=== PATIENT | male | born 1940 | race Hispanic/Latino ===

== ENCOUNTER 2016-08-14 15:28 | Emergency (ER) | payer OTHER, MEDICARE ==
[2016-08-14 15:41] VITALS: BMI 26.5
[2016-08-14 15:49] VITALS: BP 166/94; PULSE 71; RESP 18; TEMP 98; O2SAT 100
--- NOTE | 2016-08-14 15:57 | ED PDOC ---
Arrival/HPI - General Chief Complaint: Trauma Time Seen by Provider: 08/14/16 15:32 Historian: Patient, Family (Daughter) - History of Present Illness Time/Duration: Other (18 months) Symptom Onset: Sudden Symptom Course: Worsening Quality: Aching Severity Level: Moderate Associated Symptoms (Text): 08/14/16 15:54 Patient reports that approximately a year and a half prior to arrival he slipped and fell on the ice while at work injuring his neck. He's been seen by his PMD and workers compensation physician multiple times for these complaints. He reports that over the last month it has become much worse. It radiates into bilateral upper extremities with numbness and weakness of bilateral upper extremities. He had an MRI of his cervical spine on 11/05/2015 without significant findings. He reports he had a repeat MRI last week which now shows 3 herniated disks. He has an appointment with pain management in 4 days but states he cannot take the pain any longer. He has been taking Aleve with no improvement. Past Medical History - Infectious Disease Hx of Infectious Diseases: None - Past Medical History Past Medical History: No Previous - Cardiac Hx Cardiac Disorders: No - Pulmonary Hx Respiratory Disorders: No - Neurological Hx Neurological Disorder: No - HEENT Hx HEENT Disorder: No - Renal Hx Renal Disorder: Yes Hx Kidney Stones: Yes - Endocrine/Metabolic Hx Endocrine Disorders: No - Hematological/Oncological Hx Blood Disorders: No - Integumentary Hx Dermatological Disorder: No - Musculoskeletal/Rheumatological Hx Musculoskeletal Disorders: Yes Other/Comment: hernia - Gastrointestinal Hx Gastrointestinal Disorders: No - Genitourinary/Gynecological Hx Genitourinary Disorders: No - Psychiatric Hx Depression: No Hx Emotional Abuse: No Hx Physical Abuse: No Hx Substance Use: No Other/Comment: "KNEE PROBLEMS" - Past Surgical History Past Surgical History: Non-Contributing - Surgical History Other/Comment: hernia and kidney stone - Anesthesia Hx Anesthesia: No Hx Anesthesia Reactions: No Hx Malignant Hyperthermia: No - Suicidal Assessment Feels Threatened In Home Enviroment: No Family/Social History - Physician Review Nursing Documentation Reviewed: Yes Family/Social History: Unknown Family HX Smoking Status: Never Smoked Hx Alcohol Use: Yes (SOCIALLY) Frequency of alcohol use: Socially Hx Substance Use: No Hx Substance Use Treatment: No Allergies/Home Meds Allergies/Adverse Reactions: Allergies No Known Allergies Allergy (Verified 01/15/12 14:01) Review of Systems - Physician Review All systems were reviewed & negative as marked: Yes - Review of Systems Constitutional: absent: Fatigue, Fevers Respiratory: Normal Cardiovascular: Normal Gastrointestinal: Normal Musculoskeletal: Neck Pain. absent: Back Pain Neurological: absent: Headache, Dizziness, Focal Weakness, Gait Changes Physical Exam Vital Signs Temp Pulse Resp BP Pulse Ox 08/14/16 15:40 98 F 71 18 166/94 H 100 Temperature: Afebrile Blood Pressure: Hypertensive Pulse: Regular Respiratory Rate: Normal Appearance: Positive for: Well-Appearing, Non-Toxic, Uncomfortable Pain Distress: Moderate Mental Status: Positive for: Alert and Oriented X 3 - Systems Exam Head: Present: Atraumatic, Normocephalic Pupils: Present: PERRL Extroacular Muscles: Present: EOMI Conjunctiva: Present: Normal Neck: Present: Normal Range of Motion, Paraspinal Tenderness (Bilateral trapezius tenderness and spasm). No: MIDLINE TENDERNESS Respiratory/Chest: Present: Clear to Auscultation, Good Air Exchange. No: Respiratory Distress, Accessory Muscle Use Back: Present: Normal Inspection. No: CVA Tenderness, Midline Tenderness, Paraspinal Tenderness Upper Extremity: Present: Normal Inspection. No: Cyanosis, Edema Neurological: Present: GCS=15, CN II-XII Intact, Speech Normal, Motor Func Grossly Intact, Normal Cerebellar Funct Skin: Present: Warm, Dry, Normal Color. No: Rashes Medical Decision Making - Medication Orders Current Medication Orders: Cyclobenzaprine HCl (Flexeril) 10 mg PO ONCE KALEB Ketorolac Tromethamine (Toradol) 30 mg IM ONCE ONE Stop: 08/14/16 15:59 Disposition/Present on Arrival - Present on Arrival Any Indicators Present on Arrival: No History of DVT/PE: No History of Uncontrolled Diabetes: No Urinary Catheter: No History of Decub. Ulcer: No History Surgical Site Infection Following: None - Disposition Have Diagnosis and Disposition been Completed?: Yes Diagnosis: Neck pain, Cervical radiculopathy Disposition: HOME/ ROUTINE Disposition Time: 16:05 Patient Plan: Discharge Condition: GOOD Discharge Instructions (ExitCare): Cervical Sprain (ED), Cervical Radiculopathy (ED) Additional Instructions: Rest and moist heat. Follow-up with PMD. Follow up in ER as needed. Keep pain management appointment already scheduled for next week. Prescriptions: oxyCODONE/Acetaminophen [Percocet 5/325 mg Tab] 1 ea PO Q6 #15 tab
== END 2016-08-14 16:49 | disposition home or self-care (01) ==
LOC: ED 15:28
DX: M54.12 Radiculopathy, cervical region (principal); M54.2 Cervicalgia
CPT/HCPCS: 96372; 99284; J1885

== ENCOUNTER 2016-08-15 07:41 | Observation (INO) | payer OTHER, MEDICARE ==
[2016-08-15 07:42] VITALS: BMI 26.5
[2016-08-15] MEDS ORDERED: Morphine 2 mg/ml ISec IVP STA ×2 (08:18→08:44)
--- NOTE | 2016-08-15 08:18 | ED PDOC ---
Arrival/HPI - General Chief Complaint: Back Pain Time Seen by Provider: 08/15/16 07:42 Historian: Patient - History of Present Illness Narrative History of Present Illness (Text): 08/15/16 08:19 75 year old male with a past medical history that includes kidney stones presents to the emergency department with neck pain that initially began over one year ago but worsened in the past week. Patient reports he had a fall about 1.5 years ago which resulted in neck pain. Patient reports some numbness in the fingers but states he has had this for months. He states his neck pain started to worsen "a few weeks ago". He denies new trauma or injury since this recent episode's onset. Patient presents MRI report from 08/05/16 which shows broad- based central posterior disc herniation at C3-C4, C4-C5, and C5-C6. Patient reports that he had physical therapy six days after this MRI was done, after which the pain worsened. Patient states he was seen here in the ED yesterday for this pain and was given a prescription for Percocet to help with the pain until his appointment with pain management later this week, but states the Percocet is not helping. Denies fever/chills, shortness of breath, chest pain, or other symptoms. Denies weakness to legs or new weakness or numbness to any extremity. Denies incontinence of urine or stool. PMD: Dr. Esquivel 08/15/16 09:40 Time/Duration: > week Symptom Onset: Gradual Symptom Course: Unchanged Modifying Factors (Text): None Past Medical History - Provider Review Nursing Documentation Reviewed: Yes - Infectious Disease Hx of Infectious Diseases: None - Past Medical History Past Medical History: No Previous - Cardiac Hx Cardiac Disorders: No - Pulmonary Hx Respiratory Disorders: No - Neurological Hx Neurological Disorder: No - HEENT Hx HEENT Disorder: No - Renal Hx Renal Disorder: Yes Hx Kidney Stones: Yes - Endocrine/Metabolic Hx Endocrine Disorders: No - Hematological/Oncological Hx Blood Disorders: No - Integumentary Hx Dermatological Disorder: No - Musculoskeletal/Rheumatological Hx Musculoskeletal Disorders: Yes Hx Back Pain: Yes - Gastrointestinal Hx Gastrointestinal Disorders: No - Genitourinary/Gynecological Hx Genitourinary Disorders: No - Psychiatric Hx Psychophysiologic Disorder: No Hx Depression: No Hx Emotional Abuse: No Hx Physical Abuse: No Hx Substance Use: No - Past Surgical History Past Surgical History: Non-Contributing - Surgical History Other/Comment: hernia and kidney stone - Anesthesia Hx Anesthesia: No Hx Anesthesia Reactions: No Hx Malignant Hyperthermia: No - Suicidal Assessment Feels Threatened In Home Enviroment: No Family/Social History - Physician Review Nursing Documentation Reviewed: Yes Family/Social History: Unknown Family HX Smoking Status: Never Smoked Hx Alcohol Use: No Hx Substance Use: No Hx Substance Use Treatment: No Allergies/Home Meds Allergies/Adverse Reactions: Allergies No Known Allergies Allergy (Verified 08/15/16 08:00) Home Medications: Home Meds Medication Instructions Recorded Confirmed oxyCODONE/Acetaminophen [Percocet 1 ea PO Q6 PRN 08/15/16 08/15/16 5/325 mg Tab] Review of Systems - Review of Systems Constitutional: absent: Fevers Eyes: absent: Vision Changes ENT: absent: Hearing Changes Respiratory: absent: SOB Cardiovascular: absent: Chest Pain Gastrointestinal: absent: Abdominal Pain Genitourinary Male: absent: Dysuria Musculoskeletal: Back Pain, Neck Pain Skin: absent: Rash Neurological: absent: Headache Endocrine: absent: Diaphoresis Psychiatric: absent: Depression Physical Exam - Physical Exam Narrative Physical Exam (Text): Head: Atraumatic. Normocephalic. Eyes: PERRL. EOMI. Conjunctivae are not pale. ENT: Mucous membranes are moist and intact. Oropharynx is clear and symmetric. Neck: No erythema or edema. Pain with rotation and flexion and extension. Palpable left sided paraspinal tenderness. Trachea midline. No neck edema or erythema or crepitus. Cardiovascular: Regular rate. Regular rhythm. No murmurs, rubs, or gallops. Distal pulses are 2+ and symmetric. Pulmonary/Chest: No evidence of respiratory distress. Clear to auscultation bilaterally. No wheezing, rales or rhonchi. Abdominal: Soft and non-distended. There is no tenderness. No rebound, guarding, or rigidity. No organomegaly. Good bowel sounds. Back: No CVA tenderness. Extremities: No edema. No cyanosis. No clubbing. Pain with lifting left arm over his head, also right arm but less pain. Skin: Skin is warm and dry. No petechiae. No purpura. Neurological: Alert, awake, and oriented. Patient reports numbness to left fourth digit "for months", he has weaker grasp to left hand when compared to right, able to lift both arms over head but with severe pain on left. Reflexes intact. Strength with flexion and extension against resistance at elbow appears grossly intact. No wrist drop. No weakness noted to lower extremities. No incontinence of urine or stool. Psychiatric: Good eye contact. Severe pain noted. No suicidal ideation expressed. Vital Signs Reviewed: Yes Vital Signs Temp Pulse Resp BP Pulse Ox 08/15/16 08:00 98.2 F 80 16 151/88 H 98 Temperature: Afebrile Blood Pressure: Normal Pulse: Regular Respiratory Rate: Normal Appearance: Positive for: Uncomfortable Pain Distress: Severe Mental Status: Positive for: Alert and Oriented X 3 Medical Decision Making ED Course and Treatment: Differential Diagnosis include but are not limited to: cervical disc disease, cervical radiculopathy, intractable neck pain Plan: Will give Morphine and reassess. Prior Visits: Notes and results from previous visits were reviewed. Patient last seen in ED yesterday 08/14/16 for same complaint of neck/back pain and discharged home with Percocet. Progress Notes: Patient's previous visit from yesterday reviewed. He reports to me that pain is worse since yesterday, medications have not helped him. He provides outpatient MRI from 07/26/16 that was ordered by Dr. Hall. He has been receiving physical therapy since then and states pain has been worse. He has not seen a neurologist or a neursurgeon. On exam, he states that he has had numbness to left arm and hand for "months" and denies new or acute numbness or weakenss. He has severe pain with movements of his upper extremities. Left hand grasp appears mildly weaker than right, he states this is not acutely worse but has been present for "months". He does state pain has worsened. Due to intractable pain, have recommended admission with neurology and neurosurgery consultation. IV Decadron ordered and discussed with patient and family. Will admit to PMD Dr. Lady Esquivel for failure of outpatient treatment and intractable pain. Treatment plan reviewed with patient and family. Case reviewed with Dr. Lane, neurosurgery. Patient will be admitted for observation, pain persistent despite multiple doses of iv morphine, currently "7/10". 08/15/16 09:44 - Lab Interpretations Lab Results: 08/15/16 08:39 08/15/16 08:39 Lab Results 08/15/16 08:39: WBC 10.2 D, RBC 5.19, Hgb 14.8, Hct 42.9, MCV 82.7, MCH 28.5, MCHC 34.5, RDW 12.9, Plt Count 231, MPV 10.0, Gran % 75.4 H, Lymph % (Auto) 16.6 L, [place] % (Auto) 6.7 H, Eos % (Auto) 0.9 L, Baso % (Auto) 0.4, Gran # 7.72 H, Lymph # 1.7, [place] # 0.7 H, Eos # 0.1, Baso # 0.04, Sodium 135, Potassium 4.4 , Chloride 100, Carbon Dioxide 28, Anion Gap 11, BUN 24 H, Creatinine 0.9, Est GFR ( Amer) > 60, Est GFR (Non-Af Amer) > 60, Random Glucose 134 H, Calcium 9.5, Total Bilirubin 0.7, AST 36, ALT 53, Alkaline Phosphatase 99, Total Protein 7.2, Albumin 3.8, Globulin 3.4, Albumin/Globulin Ratio 1.1 - EKG Interpretation EKG Interpretation (Text): 08/15/16 09:44 EKG at 0931 normal sinus rhythm, rate of 75, no acute st elevations Interpreted by ED Physician: Yes Type: 12 lead EKG - Medication Orders Current Medication Orders: Discontinued Medications Dexamethasone (Decadron Inj) Confirm Administered Dose 8 mg .ROUTE .STK-MED ONE Stop: 08/15/16 08:37 Last Admin: 08/15/16 08:45 Dose: Dexamethasone 8 mg/ Sodium (Chloride) 52 mls @ 150 mls/hr IV STAT STA Stop: 08/15/16 08:40 Last Admin: 08/15/16 08:57 Dose: 150 MLS/HR eMAR Start Stop Document 08/15/16 08:57 GMI (Rec: 08/15/16 08:57 GMI [id number]) Intravenous Solution Start Date 08/15/16 Start Time 08:57 Ketorolac Tromethamine (Toradol) 30 mg IVP ONCE ONE Stop: 08/15/16 09:12 Last Admin: 08/15/16 09:36 Dose: 30 MG IVP Administration Document 08/15/16 09:36 GMI (Rec: 08/15/16 09:36 GMI [id number]) Charges for Administration # of IVP Administrations 1 Morphine Sulfate (Morphine) 2 mg IVP STAT STA Stop: 08/15/16 08:19 Last Admin: 08/15/16 08:26 Dose: 2 MG MAR Pain Assessment Document 08/15/16 08:26 GMI (Rec: 08/15/16 08:31 GMI [id number]) Pain Reassessment Is this a pain reassessment? Yes Sleep Is patient sleeping during reassessment? No Pain Scale Used Pain Scale Used Numeric Location Upper or Lower Upper Pain Location Body Site Neck Description Description Sharp Intensity of Pain at present 10 Pain Behavior Moaning Irritability Facial Grimacing IVP Administration Document 08/15/16 08:26 GMI (Rec: 08/15/16 08:31 GMI [id number]) Charges for Administration # of IVP Administrations 1 Morphine Sulfate (Morphine) 2 mg IVP STAT STA Stop: 08/15/16 08:45 Last Admin: 08/15/16 08:56 Dose: 2 MG MAR Pain Assessment Document 08/15/16 08:56 GMI (Rec: 08/15/16 08:57 GMI [id number]) Pain Reassessment Is this a pain reassessment? Yes Sleep Is patient sleeping during reassessment? No Presence of Pain Presence of Pain Yes Pain Scale Used Pain Scale Used Numeric Location Upper or Lower Upper Pain Location Body Site Shoulder Description Description Constant Intensity of Pain at present 10 Pain Behavior Irritability Facial Grimacing Alleviating Factors Position Change IVP Administration Document 08/15/16 08:56 GMI (Rec: 08/15/16 08:57 GMI [id number]) Charges for Administration # of IVP Administrations 1 - Scribe Statement The provider has reviewed the documentation as recorded by the Rodrigue Oseguera Provider Scribe Attestation: All medical record entries made by the Rodrigue were at my direction and personally dictated by me. I have reviewed the chart and agree that the record accurately reflects my personal performance of the history, physical exam, medical decision making, and the department course for this patient. I have also personally directed, reviewed, and agree with the discharge instructions and disposition. Disposition/Present on Arrival - Present on Arrival Any Indicators Present on Arrival: No History of DVT/PE: No History of Uncontrolled Diabetes: No Urinary Catheter: No History of Decub. Ulcer: No History Surgical Site Infection Following: None - Disposition Have Diagnosis and Disposition been Completed?: Yes Diagnosis: Intractable pain, Cervical disc herniation Disposition: HOSPITALIZED Disposition Time: 09:00 Patient Plan: Admission Patient Problems: Current Active Problems Problem Status Diagnosed Cervical disc herniation Acute Intractable pain Acute Condition: FAIR
[2016-08-15] MEDS ORDERED: Dexamethasone 4 mg/1 ml ONE (08:36)
[2016-08-15 08:39] LABS: ADD MANUAL DIFF? NO
[2016-08-15 08:56] LABS: ALB/GLOB RATIO 1.1 (1.1-1.8); ALKALINE PHOSPHATASE 99 U/L (38-133); ALT/SGPT 53 U/L (7-56); AST/SGOT 36 U/L (15-59); BILIRUBIN,TOTAL 0.7 mg/dL (0.2-1.3); BLOOD UREA NITROGEN 24 mg/dL (7-21); CALCIUM 9.5 mg/dL (8.4-10.5); CARBON DIOXIDE 28 mmol/L (21-33); CHLORIDE 100 mmol/L (98-107); GFR AFRICAN-AMERICAN > 60; GLUCOSE,RANDOM 134 mg/dL (70-110); POTASSIUM 4.4 mmol/L (3.6-5.0); SODIUM 135 mmol/L (132-148); TOTAL PROTEIN 7.2 g/dL (5.8-8.3)
[2016-08-15 09:08] LABS: BASO # 0.04 K/mm3 (0.0-2.0); BASO % 0.4 % (0.0-3.0); EOS # 0.1 (0.0-0.7); EOS % 0.9 % (1.5-5.0); GRAN # 7.72 (1.4-6.5); GRAN % 75.4 % (50.0-68.0); HEMATOCRIT 42.9 % (42.0-52.0); LYMPH # 1.7 (1.2-3.4); LYMPH % 16.6 % (22.0-35.0); MEAN CELL VOLUME 82.7 fL (80.0-105.0); MEAN CORPUSCULAR HEMOGLOBIN 28.5 pg (25.0-35.0); MEAN CORPUSCULAR HGB CONC 34.5 g/dl (31.0-37.0); MONO # 0.7 (0.1-0.6); MONO % 6.7 % (1.0-6.0); PLATELET COUNT 231 10^3/uL (120.0-450.0); RED CELL DISTRIBUTION WIDTH 12.9 % (11.5-14.5); WHITE BLOOD COUNT 10.2 10^3/ul (4.5-11.0)
[2016-08-15 12:20] VITALS: RESP 18
[2016-08-15] MEDS: Pantoprazole 40 mg EC Tab PO SCH (13:22)
--- NOTE | 2016-08-15 13:49 | CON ---
DATE: 08/15/2016 CHIEF COMPLAINT: Neck pain. HISTORY OF PRESENTING ILLNESS: A 75-year-old man with past of kidney stone, presented to the [facility] for neck pain that initially began over 1 year ago, but worsened over the past week. Apparently, 1 -1/2 years ago, he had slipped on ice and had a fall which resulted in neck pain. He reports some nu mbness in the fingers, but states that he had this for prior months with his neck pain. Now, he stat es that the neck pain is radiating down both arms, left worse than right, with tingling and numbness down the arms and with reduced hand group social worker, strength in the left hand compared to the right. He had an MRI on 08/05/2016, showed a broad based central posterior disk herniation at C3-C4, C4-C5 and C5-C6. I have not seen the report myself, but according to what the ER record shows. An MRI of the cervica l spine has been ordered. He said he did physical therapy for 6 days after his MRI, but he said it w orsened the pain. I explained to him that physical therapy is the correct mode of treatment and that his pain will increase during the first 2 weeks of physical therapy, but the pain will eventually ta per off. He was taking Percocet at home and said that it was not helping. Currently, he was given 1 dose of Decadron and morphine in the ER, which has subsided the pain. No bowel or bladder incontine nce. He does have mild left hand group social worker weakness. PAST MEDICAL HISTORY: History of kidney stones, history of fall on ice at a job which resulted in ne ck pain. REVIEW OF SYSTEMS: A 14-point is negative except for the HPI. FAMILY HISTORY: Noncontributory. SOCIAL HISTORY: No illicit drug use, smoking or ETOH abuse. MEDICATIONS: Reviewed via nurse's reconciliation sheet. ALLERGIES: No known drug allergies. PHYSICAL EXAMINATION: VITAL SIGNS: Temperature 98, pulse rate 78, blood pressure 126/81, respiratory rate 18, oxygen satur ation 99% via room air. GENERAL: The patient is sitting up in bed, in no acute distress. HEENT: Atraumatic, normocephalic. PERRLA. Extraocular muscles intact. NECK: Supple, no JVD, no adenopathy noted. LUNGS: Clear to auscultation. No adventitious sounds. HEART: S1, S2, normal rate and rhythm. No murmurs, rubs, or gallops. ABDOMEN: Soft, nontender, nondistended. Bowel sounds are present. EXTREMITIES: No clubbing, no cyanosis. Peripheral pulses 2+ felt bilaterally. NEUROLOGIC: The patient is alert, oriented to person, place, month and year. Speech is fluent, with out any errors. Cranial nerves II-XII are intact. MOTOR: Moves all extremities equally, but has a mild reduced hand group social worker on the left when compared to the right. No wrist drop. Toes are downgoing bilaterally. SENSORY: Light touch, pinprick, proprioception, vibration intact. DEEP TENDON REFLEXES: 2+ throughout. COORDINATION: [id number] intact. GAIT: Normal. LABORATORIES: Sodium is 135, potassium 4.4, chloride of 100, carbon dioxide 28, BUN of 24, creatinin e 0.9, random glucose 134. ASSESSMENT AND PLAN: A 75-year-old man with history of kidney stones, had a recent fall about a year and a half ago on ice at his job, which resulted in neck pain, which has progressed over the past fe w weeks where the neck pain is sharp in nature and is radiating down both arms, left worse than right , with reduced left hand group social worker, which is new, associated with paresthesias. His MRI of the C-spine ou [facility] on 08/05/2016 showed broad-based central posterior disk herniation C3-C4, C4-C5, C5-C6. A new M RI of the cervical spine has been ordered to see if there is any worsening. His symptoms are likely secondary to cervical radiculopathy and will recommend: 1. Physical therapy, TENS unit, myofascial massage, cervical muscle exercises and neck rehab. 2. Will give gabapentin 400 mg p.o. b.i.d. for neuropathic pain. 3. The patient is receiving Solu-Medrol 20 mg IV push q. 12 for pain as well. 4. Get an MRI of the cervical spine and neurosurgical evaluation. Once again, thank you for this consult. Abiel Daniels MD cc: [id number] TT: 08/15/2016 13:49:04 Confirmation # [id number] Dictation # [id number]
[2016-08-15] MEDS: Oxycodone/Acetaminophen 5/325 mg Tab PO PRN ×2 (15:08→21:54)
[2016-08-15] MEDS: Naproxen 550 mg Tab PO SCH (17:53)
[2016-08-15] MEDS: MethylPREDNISolone 40 mg Vial IVP SCH (21:53)
[2016-08-16] MEDS: Oxycodone/Acetaminophen 5/325 mg Tab PO PRN ×2 (03:49→09:49)
[2016-08-16] MEDS: Pantoprazole 40 mg EC Tab PO SCH (08:19)
--- NOTE | 2016-08-16 09:24 | HP ---
HISTORY OF PRESENT ILLNESS: This is a 75-year-old man who sustained a fall at work 1-1/2 years ago and has been followed by the orthopedist. He was recently seen by Dr. Hall, an orthopedist, through his worker's comp insurance. MRI was ordered and the patient was scheduled to follow up with pain management. Physical therapy had been begun recently and the patient says that just recently with the onset of physical therapy his neck pain has been worse with numbness radiating down both hands and across the upper shoulders. He was seen in the Emergency Room the day prior to this admission, treated with analgesics and muscle relaxers and discharged. This Tuesday morning he returns again complaining of severe pain in the neck, across the shoulders with intermittent numbness and tingling in the arms. As best be we know by looking at his medical and pharmaceutical records he is not a drug seeker or taker of analgesics. He has not been taking any anti-inflammatory medicines other than occasional [id number] Advil for relief. PAST MEDICAL HISTORY: Significant for a recently diagnosed diabetes. He was started on metformin just in 05/2016. He has a history of kidney stone. PAST SURGICAL HISTORY: Positive for ventral hernia repair with mesh placement. CURRENT MEDICATIONS: Include metformin as noted above, Tylenol or tramadol for pain. SOCIAL HISTORY: He does not smoke or drink alcohol. ALLERGIES: He has no known allergies. REVIEW OF SYSTEMS: Otherwise, unremarkable prior to the slip and fall on the ice at work 1-1/2 years ago he was well with no other medical complaints. PHYSICAL EXAMINATION: GENERAL: The patient was seen in the Emergency Room, slot #7, lying in the stretcher with his daughter at bedside. He seems relatively comfortable, but occasionally jumps from pain from the neck and across the shoulders into the arm. He has already received analgesics and Toradol. In conversation with me, he is able to lift his head off the stretcher and turn to a limited degree side to side during normal conversation in apparently normal manner. However, other times he winces with pain when shoulder movement or neck movement gives him what he described as an electric-shock radiating pain across from the neck, across the shoulders to the arms. HEENT: Otherwise unremarkable. Conjunctivae are pink. Mucous membranes are moist. NECK: Supple, without masses. Thyroid is not palpable. LUNGS: Clear with good aeration, right and left. HEART: Regular, not tachycardic. ABDOMEN: Soft, nontender. There is no guarding or rebound. A ventral midline scar is present. EXTREMITIES: Show no edema. Motor strength seems good to me with no specific neurologic deficit. IMPRESSION: 1. Neck pain from work-related fall on the ice approximately 1-1/2 years ago. 2. Recent MRI reportedly showing cervical herniation at 3 points touching the thecal sac, but with no indentation on the cord. 3. Recently diagnosed diabetes on metformin. 4. History of kidney stones. 5. Status post ventral hernia repair. PLAN: The patient has already received 1 dose of IV steroids in the ER. Arrangements have been made for him to be admitted. Neurology and neurosurgical consultation have been called. The ER feels strongly that the admission is justified because this is a failed outpatient treatment and his second visit to the ER in 24-36 hours, warranting further treatment and evaluation. I will continue the IV steroids, repeat the MRI of the cervical spine. Ask neurology to see the patient. Neurosurgery has already been called , although I doubt that a neurosurgical intervention at this point would be necessary and if so would need to be arranged through his [employer] carrier. Will continue the steroids for now, change to p.o. after the MRI is done, and taper as an outpatient, with return for followup care to his [facility]. Jhon Esquivel MD cc: [phone] TT: 08/16/2016 09:23:16 bette RANDALL
[2016-08-16] MEDS: Naproxen 550 mg Tab PO SCH ×2 (09:49→17:13)
[2016-08-16] MEDS: MethylPREDNISolone 40 mg Vial IVP SCH ×2 (09:50→21:31)
--- NOTE | 2016-08-16 16:38 | CARD ---
APPROVED REPORT EKG Measurement Heart [id number] CT [id number] [id number] <Conclusion> Poor data quality, interpretation may be adversely affected Normal sinus rhythm Normal ECG
--- NOTE | 2016-08-16 16:53 | CP.PCM.CON ---
History of Present Illness - History of Present Illness History of Present Illness: SPINE CONSULT Pt seen and examined. Full consult dictated. No evidence of need for surgical intervention at this time. Agree with PT/pain management. Past Patient History - Infectious Disease Hx of Infectious Diseases: None - Past Social History Smoking Status: Never Smoked - CARDIAC Hx Cardiac Disorders: No - PULMONARY Hx Respiratory Disorders: No - NEUROLOGICAL Hx Neurological Disorder: No - HEENT Hx HEENT Problems: No - RENAL Hx Chronic Kidney Disease: Yes Hx Kidney Stones: Yes - ENDOCRINE/METABOLIC Hx Endocrine Disorders: No - HEMATOLOGICAL/ONCOLOGICAL Hx Blood Disorders: No - INTEGUMENTARY Hx Dermatological Problems: No - MUSCULOSKELETAL/RHEUMATOLOGICAL Hx Falls: No - GASTROINTESTINAL Hx Gastrointestinal Disorders: No - GENITOURINARY/GYNECOLOGICAL Hx Genitourinary Disorders: No - PSYCHIATRIC Hx Psychophysiologic Disorder: No Hx Depression: No Hx Emotional Abuse: No Hx Physical Abuse: No - SURGICAL HISTORY Other/Comment: hernia and kidney stone - ANESTHESIA Hx Anesthesia: No Hx Anesthesia Reactions: No Hx Malignant Hyperthermia: No Meds Allergies/Adverse Reactions: Allergies Allergy/AdvReac Type Severity Reaction Status Date / Time No Known Allergies Allergy Verified 08/15/16 08:00 - Medications Medications: Current Medications Acetaminophen (Tylenol 325mg Tab) 650 mg PO Q6H PRN PRN Reason: Pain, Mild (1-3) Cyclobenzaprine HCl (Flexeril) 5 mg PO Q6H PRN PRN Reason: spasm Last Admin: 08/16/16 09:49 Dose: 5 mg Gabapentin (Neurontin) 400 mg PO BID [facility] PRN Reason: Protocol Last Admin: 08/16/16 09:49 Dose: 400 mg Metformin HCl (Glucophage) 500 mg PO DAILY [facility] Last Admin: 08/16/16 09:49 Dose: 500 mg Methylprednisolone (Solu-Medrol) 20 mg IVP Q12 [facility] Last Admin: 08/16/16 09:50 Dose: 20 mg Naproxen (Anaprox Ds) 550 mg PO BID [facility] Last Admin: 08/16/16 09:49 Dose: 550 mg Oxycodone/Acetaminophen (Percocet 5/325 Mg Tab) 1 tab PO Q4H PRN PRN Reason: Pain, severe (8-10) Stop: 08/18/16 11:16 Last Admin: 08/16/16 09:49 Dose: 1 tab Pantoprazole Sodium (Protonix Ec Tab) 40 mg PO ACB KALEB Last Admin: 08/16/16 08:19 Dose: 40 mg Tramadol HCl (Ultram) 50 mg PO Q6H PRN PRN Reason: Pain, moderate (4-7) Results - Vital Signs Recent Vital Signs: Last Vital Signs Temp 97.5 F L 08/16/16 16:02 Pulse 64 08/16/16 16:02 Resp 18 08/16/16 16:02 BP 140/73 08/16/16 16:02 Pulse Ox 94 L 08/16/16 16:02 - Labs Result Diagrams: 08/15/16 08:39 08/15/16 08:39 Labs: Laboratory Results - last 24 hr 08/15/16 08/15/16 08/16/16 16:31 21:24 07:01 POC Glucose (mg/dL) 225 H 230 H 178 H 08/16/16 08/16/16 11:21 15:53 POC Glucose (mg/dL) 294 H 203 H
--- NOTE | 2016-08-17 08:19 | CON ---
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 He states off and on over the past year and a half, he gets episodes of pain in his neck. Sometimes he gets some numbness in the arms, usually just to the ring finger on each hand, but that got much worse of late without any new trauma to report. He states the left side is worse than the right side. He had no formal treatment up until recently. He was sent for an MRI about 3 weeks ago, which reportedly showed posterior disk herniations at C3-4, C4-5, and C5-6. He does not have the films as he brought the disk back to Dr. Hall and then brought it to his [employer]. He came to the Emergency Room on Tuesday to be evaluated and was given Percocet and other medications. He states he went home and had a good 4 hours of sleep, but when he woke up, both arms felt very weak. Therefore, he came back to the Emergency Room on Tuesday and was admitted. He denies any loss of bowel or bladder control. He is right handed. PAST MEDICAL HISTORY: Significant for kidney stones. MEDICATIONS: Listed as Percocet. ALLERGIES: He is not allergic to any medicines he knows of. PHYSICAL EXAMINATION: He complains of tenderness over the left trapezial muscles. He can flex his chin to his chest and has good extension. Laterally rotates to at least 45 degrees to the left without any complaints. However, when he rotates the same to the right, he complains of right-sided neck pain. He is able to move both upper extremities fully and actively. He has good strength and shrugging shoulders. Good strength in all muscle groups in testing the biceps, triceps and wrist extensors. His rib cutter strength is a little weak bilaterally, a little stronger on the right than left, but he is right handed. Sensory is intact to light touch throughout. No Ashley's noted. Excellent distal pulses. Reflexes are intact throughout. No clonus or Babinski 's present in the lower extremities. No hyperreflexia present. He had a new MRI done earlier today, which I reviewed. No official radiologist' s report is available yet. It shows some disk desiccation throughout all the disks in his neck. Perhaps some mild narrowing of C5-C6 disk. There is a small disk bulges at 3-4 and 4-5, maybe perhaps a little more so at C5-C6, but one can clearly see a good space around the cord at all the levels. The neural foramina appear to be wide open at all the levels as well. No obvious vertebral body or spinal cord abnormalities otherwise. IMPRESSION: Cervical radiculitis. Even if there was something going on at these upper disks it would not completely correspond to his complaint of numbness strictly in the index finger on both sides. I agree with Dr. Young's recommendation in terms of pain management and physical therapy. He states he went for 6 or 8 visits over the last 3 weeks and it was "just making things worse", so he stopped it. It may be worthwhile to start it again in the hospital controlled circumstances. He is supposed to see his pain management doctor this for first visit and I am sure they will give some consideration to an epidural injection or something in those lines. Again, at this point his gross neurologic exam is intact. I do not see anything that surgically needs to be addressed, so I would treat him as conservatively as we can and then proceed from there. Thank you for allowing me to participate in the care of your patient. Otis Gallego MD cc: [id number] TT: 08/16/2016 18:28:17 Confirmation # [id number] Dictation # [id number] efrain RANDALL
[2016-08-17] MEDS: Pantoprazole 40 mg EC Tab PO SCH (08:33)
[2016-08-17 08:36] VITALS: BP 145/88; PULSE 65; TEMP 97.8; O2SAT 97
[2016-08-17] MEDS: MethylPREDNISolone 40 mg Vial IVP SCH (10:55)
[2016-08-17] MEDS: Naproxen 550 mg Tab PO SCH (10:58)
--- NOTE | 2016-08-17 12:09 | MRI ---
PROCEDURE: MR CERVICAL SPINE WITHOUT CONTRAST HISTORY: Neck pain COMPARISON: 11/05/2015 TECHNIQUE: Multiecho multiplanar sequences were performed through the cervical spine without the use of intravenous contrast. FINDINGS: There is normal alignment of the cervical vertebral bodies. There is straightening of the cervical spine with loss of normal cervical lordosis. Vertebral height is normal. There is no acute fracture or spondylolisthesis. There is a small round hemangioma in the. Otherwise, bone marrow signal is within normal limits. The cervical cord is normal in contour, caliber and has normal intrinsic signal. The paraspinous soft tissues are normal. C2-C3: No disc herniation, spinal canal stenosis or neural foraminal narrowing. C3-C4: Broad-based disc osteophyte complex and asymmetric left uncovertebral joint and facet arthropathy result in moderate left neural foraminal stenosis. No spinal canal stenosis. C4-C5: Broad-based disc osteophyte complex and asymmetric left uncovertebral joint and facet arthropathy resulting in mild left neural foraminal stenosis. No spinal canal stenosis. C5-C6: There is interval development of the left foraminal disc protrusion impinging on the exiting C6 nerve root. No central spinal canal stenosis. C6-C7: No disc herniation, spinal canal stenosis or neural foraminal narrowing. There are bilateral small perineural cysts. C7-T1: No disc herniation, spinal canal stenosis or neural foraminal narrowing. OTHER FINDINGS: At T1-2, there is a stable left perineural cyst. IMPRESSION: Interval development of left foraminal disc protrusion at C5-6 impinging on the exiting C6 nerve root. No central spinal canal stenosis. No other significant interval change since the prior examination. A preliminary report was provided by [employer] [facility]. Additional findings at C5-6 as described above.
--- NOTE | 2016-08-18 13:27 | DS ---
This is a 75-year-old man who I do not know very well. He usually sees my partner in the office. This weekend he came to the ER at [facility] on 2 occasions over this most recent weekend, was treated in the first episode, but then returned within 24 hours complaining of severe neck pain. The patient sustained a fall at work on the ice 1-1/2 years ago. He has been seen by a worker's comp doc and an orthopedist. He recently began physical therapy which he feels made his neck pain and symptoms worse along with numbness and tingling going down both right and left arms. He came to the ER, was treated with analgesics and anti-inflammatories, sent home only to return again because of severe pain. The concern for neurologic involvement was great amongst the ER physicians. Arrangements were made for him to be admitted and I was called. Neurology and neurosurgery had already been contacted. When I saw the patient in the Emergency Room on Tuesday, he was resting comfortably in a stretcher with some head movement and able to lift his head off the pillow. He has been given a dose of IV steroids, so I agreed to admit him, continue with IV steroids and await the opinion from neurology and neurosurgery as had been requested. Because the pain had worsened so much with beginning of physical therapy, I also asked for repeat MRI of the cervical spine to be done. The following day, he was seen by neurology and neurosurgery. Both were in agreement that conservative treatment would be best at this point. There was no need for surgical intervention. He would be able to be discharged after the MRI with followup with the worker's comp docs, including a pain management appointment he has on . Unfortunately, there were delays and an MRI could not be done until late Tuesday. As of the time of my discharge, the MRI report was still not available, so I reviewed the films with the radiologist in the department who reported a very subtle finding of a left-sided cervical foraminal narrowing at the C5-6 level on the left side. Clinically, the patient seemed to have responded nicely to the steroids, was very much anxious and looking forward to go home. His recently diagnosed diabetes had flared a little bit because of the steroids. He was restarted on metformin (which he had stopped on his own in May) and sugars improved. He was discharged to home on a few more days of prednisone. A hard copy CD of the MRI was made for the patient to worm picker from the radiology department upon exiting the hospital. I prepared a packet including the admitting history and physical, neurology and neurosurgery consultations as well as the MRI report when it is available. Lab work and EKG will be included in that package. The patient will pick that up in the office tomorrow. Of interest is that today, Tuesday, the day of discharge, the patient reported the neck pain and the posterior upper back pain feel much better; however, he reported quite a bit of pain in the left shoulder. On physical exam, the shoulder is tender with range of motion. He was not able to put his hand behind the back, making me very suspicious of internal derangement of the shoulder and possible left rotator cuff injury. The patient was advised to follow up with an orthopedist on this appointment. FINAL DISCHARGE DIAGNOSES: 1. Intractable neck pain related to a fall at work 1-1/2 years ago with failure to respond to outpatient treatment after being seen in the Emergency Room twice this weekend. 2. Diabetes. 3.Left shoulder pain and possible rotator cuff. PLAN: The patient was discharged to home. A prescription was sent for prednisone 10 mg t.i.d. x 3 days. He is instructed to follow up with the orthopedist/worker's compensation doctor regarding his left shoulder findings that I have explained to him and to be in touch with them about the MRI. Further care regarding this work-related injury will be assumed by the worker's compensation physicians. Jhon Esquivel MD cc: [id number] TT: 08/18/2016 13:26:50 laurie RANDALL
== END 2016-08-17 13:31 | disposition home or self-care (01) ==
LOC: ED 07:41 → ERH 10:26 → 5RSO 11:09
PROVIDERS: ADMIT Internal Medicine; ATTEND Internal Medicine
DX: M50.122 Cervical disc disorder at C5-C6 level with radiculopathy (principal); M25.512 Pain in left shoulder; R20.0 Anesthesia of skin; R20.8 Other disturbances of skin sensation; E11.9 Type 2 diabetes mellitus without complications; Z79.84 Long term (current) use of oral hypoglycemic drugs; Z91.81 History of falling; Z87.442 Personal history of urinary calculi
CPT/HCPCS: 72141; 80053; 82948; 85025; 93005; 96365; 96375; 96376; 99284; G0378; J1100; J1885; J2270; J2920

== ENCOUNTER 2016-09-06 13:37 | Observation (INO) | payer MEDICARE, OTHER ==
[2016-09-06 13:37] VITALS: BMI 26.5
[2016-09-06] MEDS ORDERED: Morphine 4 mg/ml ISec IVP STA ×2 (13:59→19:07)
--- NOTE | 2016-09-06 14:08 | ED PDOC ---
Arrival/HPI - General Chief Complaint: Abdominal Pain Time Seen by Provider: 09/06/16 13:46 Historian: Patient - History of Present Illness Narrative History of Present Illness (Text): 09/06/16 14:04 A 75 year old female, whose past medical history includes multiple kidney stones , was referred to the emergency department by urologist for right sided flank and abdominal pain since this morning. Patient states his pain feels similar to previous kidney stone symptoms. Patient denies any relieving or exacerbating factors. Patient denies any fever, chills, nausea, vomiting, diarrhea, frequency , dysuria, hematuria, chest pain, shortness of breath or chest pain or any other complaints. Urologist: Dr. Downey Time/Duration: Other (This morning) Symptom Course: Unchanged Quality: Other Context: Home Past Medical History - Provider Review Nursing Documentation Reviewed: Yes - Infectious Disease Hx of Infectious Diseases: None - Past Medical History Past Medical History: No Previous - Cardiac Hx Cardiac Disorders: No - Pulmonary Hx Respiratory Disorders: No - Neurological Hx Neurological Disorder: No - HEENT Hx HEENT Disorder: No - Renal Hx Renal Disorder: Yes Hx Kidney Stones: Yes - Endocrine/Metabolic Hx Endocrine Disorders: No - Hematological/Oncological Hx Blood Disorders: No - Integumentary Hx Dermatological Disorder: No - Musculoskeletal/Rheumatological Hx Musculoskeletal Disorders: No Hx Back Pain: Yes - Gastrointestinal Hx Gastrointestinal Disorders: No Other/Comment: Hernia - Genitourinary/Gynecological Hx Genitourinary Disorders: Yes Other/Comment: Kidney stones - Psychiatric Hx Psychophysiologic Disorder: No Hx Depression: No Hx Emotional Abuse: No Hx Physical Abuse: No Hx Substance Use: No - Past Surgical History Past Surgical History: Non-Contributing - Surgical History Other/Comment: hernia and kidney stone - Anesthesia Hx Anesthesia: Yes Hx Anesthesia Reactions: No Hx Malignant Hyperthermia: No - Suicidal Assessment Feels Threatened In Home Enviroment: No Family/Social History - Physician Review Nursing Documentation Reviewed: Yes Family/Social History: No Known Family HX Smoking Status: Never Smoked Hx Alcohol Use: Yes (social) Hx Substance Use: No Hx Substance Use Treatment: No Allergies/Home Meds Allergies/Adverse Reactions: Allergies No Known Allergies Allergy (Verified 08/15/16 08:00) Home Medications: Home Meds Medication Instructions Recorded Confirmed oxyCODONE/Acetaminophen [Percocet 1 ea PO Q6 PRN 08/15/16 09/06/16 5/325 mg Tab] Review of Systems - Physician Review All systems were reviewed & negative as marked: Yes - Review of Systems Constitutional: absent: Fevers, Night Sweats Respiratory: absent: SOB Cardiovascular: absent: Chest Pain Gastrointestinal: Abdominal Pain (Right sided abdominal pain). absent: Diarrhea , Nausea, Vomiting Genitourinary Male: absent: Dysuria, Frequency, Hematuria Musculoskeletal: Back Pain (Right sided flank pain) Physical Exam Vital Signs Reviewed: Yes Vital Signs Temp Pulse Resp BP Pulse Ox 09/06/16 13:45 98.5 F 70 18 150/77 98 Temperature: Afebrile Blood Pressure: Normal Pulse: Regular Respiratory Rate: Normal Appearance: Positive for: Well-Appearing, Non-Toxic, Comfortable Pain Distress: None Mental Status: Positive for: Alert and Oriented X 3 - Systems Exam Head: Present: Atraumatic, Normocephalic Pupils: Present: PERRL Extroacular Muscles: Present: EOMI Conjunctiva: Present: Normal Mouth: Present: Moist Mucous Membranes Neck: Present: Normal Range of Motion Respiratory/Chest: Present: Clear to Auscultation, Good Air Exchange. No: Respiratory Distress, Accessory Muscle Use Cardiovascular: Present: Regular Rate and Rhythm, Normal S1, S2. No: Murmurs Abdomen: Present: Tenderness (Mild right sided abdominal tenderness to palpation ), Normal Bowel Sounds. No: Distention, Peritoneal Signs, Rebound, Guarding Back: Present: CVA Tenderness (Right sided CVA tenderness to palpation) Upper Extremity: Present: Normal Inspection. No: Cyanosis, Edema Lower Extremity: Present: Normal Inspection. No: Edema Neurological: Present: GCS=15, CN II-XII Intact, Speech Normal Skin: Present: Warm, Dry, Normal Color. No: Rashes Psychiatric: Present: Alert, Oriented x 3, Normal Insight, Normal Concentration Medical Decision Making ED Course and Treatment: 09/06/16 14:04 Impression: A 75 year old male with right sided flank and abdominal pain. Patient denies any urinary symptoms. Tenderness noted on exam. Plan: -- Abdomen and pelvis CT -- Labs -- Urine culture and Urinalysis -- Toradol and Morphine -- Reassess and disposition Prior Visits: Notes and results from previous visits were reviewed. Patient last seen in the ED on 08/15/16 and hospitalized for intractable pain and cervical disc herniation. Progress Notes: Report Date : 09/06/2016 16:03:46 PROCEDURE: CT Abdomen and Pelvis without intravenous contrast Dictator : Ludwin June MD IMPRESSION: Bilateral renal calculi with mild right-sided hydronephrosis secondary to the 2 tandem calculi in the distal right ureter at the level of the mid pelvis. On there are so also a small calculus distal left ureter however no evidence of left hydronephrosis. Mild infiltration changes seen within right and to a lesser degree left perinephric fat - Lab Interpretations Lab Results: 09/06/16 14:20 09/06/16 14:20 Lab Results 09/06/16 14:20: Sodium 135, Potassium 4.5, Chloride 98, Carbon Dioxide 26, Anion Gap 16, BUN 28 H, Creatinine 1.1, Est GFR ( Amer) > 60, Est GFR ( Non-Af Amer) > 60, Random Glucose 148 H, Calcium 9.9, Total Bilirubin 0.9, AST 20, ALT 42, Alkaline Phosphatase 95, Total Protein 7.6, Albumin 4.1, Globulin 3.6, Albumin/Globulin Ratio 1.1, Amylase 109, Lipase 228 09/06/16 14:20: Urine Color Yellow, Urine Appearance Sl cloudy, Urine pH 6.0, Ur Specific [place] 1.025, Urine Protein Trace H, Urine Glucose (UA) Negative, Urine Ketones Trace H, Urine Blood Large H, Urine Nitrate Negative, Urine Bilirubin Negative, Urine Urobilinogen 0.2, Ur Leukocyte Esterase Negative, Urine RBC Tntc, Urine WBC 0 - 2 09/06/16 14:20: WBC 11.1 H, RBC 5.76, Hgb 16.6, Hct 46.6, MCV 80.9, MCH 28.8, MCHC 35.6, RDW 12.8, Plt Count 196, MPV 10.0, Gran % 87.4 H, Lymph % (Auto) 9.9 L, Riley % (Auto) 2.6, Eos % (Auto) 0.1 L, Baso % (Auto) 0.0, Gran # 9.67 H, Lymph # 1.1 L, Riley # 0.3, Eos # 0.0, Baso # 0.00 I have reviewed the lab results: Yes - RAD Interpretation Radiology Orders: 09/06/16 13:59 ABD & PELVIS W/O PO OR IV CONT [CT] Stat - Medication Orders Current Medication Orders: Discontinued Medications Ketorolac Tromethamine (Toradol) 15 mg IVP STAT STA Stop: 09/06/16 14:00 Last Admin: 09/06/16 14:25 Dose: 15 mg Re-Assess: [facility] Pain Assessment Document 09/06/16 15:17 SS (Rec: 09/06/16 15:17 [id number] Pain Reassessment Is this a pain reassessment? Yes Sleep Is patient sleeping during reassessment? No Presence of Pain Presence of Pain Yes Pain Scale Used Pain Scale Used Numeric Location Left, Right or Bilateral Right Upper or Lower Lower Pain Location Body Site Abdomen Description Description Constant Intensity of Pain at present 3 Pain Behavior Restlessness Morphine Sulfate (Morphine) 4 mg IVP STAT STA Stop: 09/06/16 14:00 Last Admin: 09/06/16 14:18 Dose: 4 mg Re-Assess: [facility] Pain Assessment Document 09/06/16 15:16 SS (Rec: 09/06/16 15:17 [id number] Pain Reassessment Is this a pain reassessment? Yes Sleep Is patient sleeping during reassessment? No Presence of Pain Presence of Pain Yes Pain Scale Used Pain Scale Used Numeric Location Left, Right or Bilateral Right Upper or Lower Lower Pain Location Body Site Abdomen Description Description Constant Intensity of Pain at present 3 Pain Behavior Restlessness - Scribe Statement The provider has reviewed the documentation as recorded by the Rodrigue Stubbs Provider Scribe Attestation: All medical record entries made by the Scribe were at my direction and personally dictated by me. I have reviewed the chart and agree that the record accurately reflects my personal performance of the history, physical exam, medical decision making, and the department course for this patient. I have also personally directed, reviewed, and agree with the discharge instructions and disposition. Disposition/Present on Arrival - Present on Arrival Any Indicators Present on Arrival: No History of DVT/PE: No History of Uncontrolled Diabetes: No Urinary Catheter: No History of Decub. Ulcer: No History Surgical Site Infection Following: None - Disposition Have Diagnosis and Disposition been Completed?: Yes Diagnosis: Nephrolithiasis Disposition: HOSPITALIZED Disposition Time: 16:15 Condition: STABLE [facility] - Follow up with primary
[2016-09-06 14:32] LABS: ADD MANUAL DIFF? NO
[2016-09-06 14:35] LABS: EOS % 0.1 % (1.5-5.0); GRAN # 9.67 (1.4-6.5); GRAN % 87.4 % (50.0-68.0); HEMATOCRIT 46.6 % (42.0-52.0); LYMPH # 1.1 (1.2-3.4); LYMPH % 9.9 % (22.0-35.0); MEAN CELL VOLUME 80.9 fL (80.0-105.0); MEAN CORPUSCULAR HEMOGLOBIN 28.8 pg (25.0-35.0); MEAN CORPUSCULAR HGB CONC 35.6 g/dl (31.0-37.0); MONO # 0.3 (0.1-0.6); MONO % 2.6 % (1.0-6.0); PLATELET COUNT 196 10^3/uL (120.0-450.0); RED CELL DISTRIBUTION WIDTH 12.8 % (11.5-14.5); URINE BILIRUBIN NEGATIVE (NEGATIVE); URINE BLOOD LARGE (NEGATIVE); URINE GLUCOSE (UA) NEGATIVE (NEGATIVE); URINE KETONE TRACE mg/dL (NEGATIVE); URINE LEUKOCYTE ESTERASE NEGATIVE Leu/uL (NEGATIVE); URINE PROTEIN TRACE mg/dL (<30 mg/dL); URINE UROBILINOGEN 0.2 E.U./dL (<1 E.U./dL); WHITE BLOOD COUNT 11.1 10^3/ul (4.5-11.0)
[2016-09-06 14:42] LABS: URINE APPEARANCE SL CLOUDY (CLEAR); URINE COLOR YELLOW (YELLOW)
[2016-09-06 14:44] LABS: URINE RBC TNTC /hpf (0-2); URINE WBC 0 - 2 /hpf (0-6)
[2016-09-06 14:46] LABS: ALB/GLOB RATIO 1.1 (1.1-1.8); ALKALINE PHOSPHATASE 95 U/L (38-133); ALT/SGPT 42 U/L (7-56); AMYLASE 109 U/L (35-125); AST/SGOT 20 U/L (15-59); BILIRUBIN,TOTAL 0.9 mg/dL (0.2-1.3); BLOOD UREA NITROGEN 28 mg/dL (7-21); CALCIUM 9.9 mg/dL (8.4-10.5); CARBON DIOXIDE 26 mmol/L (21-33); CHLORIDE 98 mmol/L (98-107); GFR AFRICAN-AMERICAN > 60; GLUCOSE,RANDOM 148 mg/dL (70-110); LIPASE 228 U/L (23-300); POTASSIUM 4.5 mmol/L (3.6-5.0); SODIUM 135 mmol/L (132-148); TOTAL PROTEIN 7.6 g/dL (5.8-8.3)
--- NOTE | 2016-09-06 16:05 | CT ---
PROCEDURE: CT Abdomen and Pelvis without intravenous contrast HISTORY: right flank pain - h/o multiple kidney stones COMPARISON: None. TECHNIQUE: Radiation dose: Total exam DLP = 546.19 mGy-cm. This CT exam was performed using one or more of the following dose reduction techniques: Automated exposure control, adjustment of the mA and/or kV according to patient size, and/or use of iterative reconstruction technique. FINDINGS: LOWER THORAX: Minor passive atelectasis both posterior lower lung zones. No focal consolidation or effusion. LIVER: The liver exhibits normal size measuring approximately 14 cm in CC dimension. No obvious hepatic mass or collection seen on this noncontrast study. . Note made of a few small rounded calcifications along the anterior superior surface of the left lobe liver near the dome of the diaphragm . GALLBLADDER AND BILE DUCTS: Gallbladder is physiologically distended. No evidence of intraluminal gallbladder calculi. PANCREAS: Unremarkable. No gross lesion or ductal dilatation. SPLEEN: Unremarkable. ADRENALS: Unremarkable. No mass. KIDNEYS AND URETERS: There are multiple small calculi seen scattered upper lower poles right kidney. The largest calculus located in the midpole measures approximately 5.9 mm. The largest lower pole calculus measures approximately 4.0 mm. There is mild right-sided hydronephrosis on with dilatation of the right ureter to the level of the mid pelvis region secondary to 2 tandem round calculi in the pelvic ureter measuring 5.3 and 5.6 mm respectively. The Multiple tiny calculi scattered throughout the upper and lower poles left kidney the largest measuring approximately 6 mm located midpole level. There also appears to be a tiny 4 mm calculus distal left ureter located at the level of the acetabular roof however no evidence of left-sided hydronephrosis. Mild infiltration changes seen within the right and to a lesser degree left perinephric fat VASCULATURE: Unremarkable. No aortic aneurysm. BOWEL: Evaluation of the bowel is limited due to the lack of oral contrast material. Stomach is incompletely distended. Visualized loops of small bowel exhibit normal contour and caliber. No evidence of acute mechanical small bowel obstruction. Moderate amount of stool seen within the cecum and ascending colon consistent with mild fecal retention. Normal appendix. There are few scattered colonic diverticula are present. APPENDIX: Unremarkable. Normal appendix. PERITONEUM: Unremarkable. No free fluid. No free air. Small fat containing umbilical hernia. LYMPH NODES: Unremarkable. No enlarged lymph nodes. BLADDER: Urinary bladder is the incompletely distended which may account for slight thick-walled appearance. Muscular hypertrophy may contribute. Cystitis cannot be excluded. REPRODUCTIVE: Prostate gland measures approximately 4.0 cm in transverse dimension. BONES: Mild multilevel degenerative spondylosis of the lower thoracic and lumbar spine most notably affecting L5-S1 level. OTHER FINDINGS: None. IMPRESSION: Bilateral renal calculi with mild right-sided hydronephrosis secondary to the 2 tandem calculi in the distal right ureter at the level of the mid pelvis. On there are so also a small calculus distal left ureter however no evidence of left hydronephrosis. Mild infiltration changes seen within right and to a lesser degree left perinephric fat
[2016-09-06] MEDS ORDERED: Dextrose 5%/0.45% NS 1,000 ML IV SCH (20:45)
[2016-09-06] MEDS ORDERED: levoFLOXacin 500 MG TAB PO ONE (22:00)
[2016-09-07] MEDS ORDERED: Lidocaine 2% Jelly (Uro-Jet) ONE (09:20)
[2016-09-07] MEDS ORDERED: Iohexol 240 (50 ml) ONE (09:20)
--- NOTE | 2016-09-07 09:27 | RAD ---
HISTORY: FOR OR WITH DR DAWN 10AM COMPARISON: 09/06/2014 FINDINGS: LUNGS: No active pulmonary disease. PLEURA: No significant pleural effusion identified, no pneumothorax apparent. CARDIOVASCULAR: Normal. OSSEOUS STRUCTURES: No significant abnormalities. VISUALIZED UPPER ABDOMEN: Normal. OTHER FINDINGS: None. IMPRESSION: No active disease.
[2016-09-07] MEDS ORDERED: Midazolam 2 MG/2 ML VIAL ONE (10:28)
[2016-09-07] MEDS ORDERED: Propofol 10 mg/ml Inj (20 ML) ONE (10:28)
[2016-09-07] MEDS ORDERED: HYDROmorphone 0.5 mg/0.5 ml ISec IVP PRN (11:11)
[2016-09-07] MEDS ORDERED: Sodium Chloride 0.9% 1,000 ML IV SCH (11:15)
[2016-09-07 11:24] VITALS: RESP 14; TEMP 98
[2016-09-07 11:43] VITALS: PULSE 55
[2016-09-07 11:59] VITALS: BP 137/60; O2SAT 96
--- NOTE | 2016-09-07 12:12 | OP ---
PROCEDURE DATE: 09/07/2016 PREOPERATIVE DIAGNOSIS: Obstructing distal right ureteral calculi. POSTOPERATIVE DIAGNOSIS: Obstructing distal right ureteral calculi with urethral stricture. PROCEDURE: Urethral dilatation, urethroscopy cystoscopy, insertion of right pigtail stent. SURGEON: Luis Downey M.D. ANESTHESIA: LMA. DESCRIPTION OF OPERATION: The patient has a recent history of having had cervical epidural injection s. He was placed in lithotomy while awake to make sure there was no discomfort either to his neck an d also he has some immobility of his right hip. When he was comfortable LMA anesthesia was then give n. The patient was prepped and draped in usual manner. Initially, a 22-Czech cystourethroscope was introduced under direct vision. In the bulbous urethra, there was seen to be a short small strictur e. I removed the 22-Czech cystourethroscope and used a 7-Czech semi-rigid ureteroscope to go throu gh the strictured area. There was mild BPH and then entered the bladder where a sensor wire was then passed through the ureteroscope. The ureteroscope was removed. I then sequentially used a 17-Frenc h cystoscope to dilate the strictured area and then replaced it with a 22-Czech cystourethroscope an d dilated the urethral stricture which was short segment with no evidence of any trauma or bleeding. Inspection of the bladder showed no tumors, foreign bodies, or stones. Orifices normal in appearanc e. Clear efflux from the left. No efflux from the right. An open-ended catheter was placed at the opening of right ureteral orifice. A 0.035 Glidewire was then advanced up the right ureter under flu oroscopic guidance. The open-ended catheter was advanced over the Glidewire. The Glidewire was wai shahnaz and a 0.035 sensor wire was then exchanged. The open-ended catheter was removed. Over the senso r wire, a 6 Czech 28 cm pigtail stent was placed. When properly placed, the sensor wire was removed with the pigtail coiling nicely in the right renal pelvis and in the bladder. There was turbid effl ux from the right ureteral orifice. Urine was obtained for C and S upon initial introduction of the cystoscope. The bladder was drained. The cystoscope was removed. The patient was awakened and brou ght to recovery room in good condition. Luis Downey MD cc: [phone] TT: 09/07/2016 12:12:07 tn
--- NOTE | 2016-09-07 12:19 | CON ---
DATE: 09/07/2016 HISTORY OF PRESENT ILLNESS: The patient is a 75-year-old male who has had a past history of kidney s tones and ureteral stones with colic. He called me yesterday in the afternoon, told me he was having what he thought was right colic. I advised him to go to the Emergency Room. A CAT scan was done. I spoke to the Emergency Room physician. It showed bilateral nonobstructing renal stones on the left and the right and there were two 5 mm stones in the distal right ureter causing hydronephrosis and c ausing his symptoms. There was also a question of a left 4 mm ureteral stone with no hydro with the patient being totally asymptomatic on the left side. He had no fever or chills. He did have nausea, primarily was having the severe colicky pain. PAST MEDICAL HISTORY: Significant for some cervical radiculopathy. ALLERGIES: HE HAS AN ALLERGY TO PENICILLIN. FAMILY HISTORY: Noncontributory. SOCIAL HISTORY: He does not smoke. He drinks socially. REVIEW OF SYMPTOMS: No symptoms referable to the head, eyes, ears, nose or throat. No cardiac, resp iratory symptoms. No current GI symptoms. He urologically does have the right-sided pain, although no voiding issues. No psychiatric issues. No symptoms referable to his skin. Musculoskeletal, he d oes have the back pain and the neck pain. PHYSICAL EXAMINATION: VITAL SIGNS: Shows him to be afebrile, blood pressure was 146/88, pulse 66, respirations 18. HEENT: Normocephalic, sclerae clear, conjunctivae not injected. LUNGS: No respiratory distress or use of accessory muscles. ABDOMEN: No masses, rebound or guarding. There is right-sided flank tenderness. GENITALIA: Penis, testicles, cord, epididymis normal. SKIN: No purpura or edema. PSYCHIATRIC: No psychiatric symptoms. NEUROLOGIC: Well oriented x 3. LABORATORY DATA: Shows a white count of 11,100. His creatinine is 1.1. His urine showed too genna us to count RBCs, negative for leukocyte esterase, 0-2 WBCs. The patient was given 1 Levaquin and I reviewed his CAT scan. The plan is to place a right pigtail s tent and then possible ureteroscopy and laser if the urine is not turbid. If it is, I will just plac e a pigtail stent, wait a week and then do ureteroscopy and laser. The patient is aware of the plan. He also knows that there may be a stone on the left, although he has no symptoms whatsoever. He is on Flomax, so if it is a stone, hopefully a stone that size will pass spontaneously. We will schedu le him. Luis Downey MD cc: [id number] TT: 09/07/2016 12:18:27 Confirmation # [id number] Dictation # [id number] tn
[2016-09-07] MEDS ORDERED: POLYETHYLENE GLYCOL 3350 17 GM/Dose PACKET PO SCH (18:00)
--- NOTE | 2016-09-07 20:59 | CARD ---
APPROVED REPORT EKG Measurement Heart [id number] MI 152P-2 [id number] <Conclusion> Sinus bradycardia Otherwise normal ECG
--- NOTE | 2016-09-08 08:01 | PN ---
DATE: 09/08/2016 This is a 75-year-old man I have met only once before when he was admitted for a work-related neck pa in only a few weeks ago. He came to the Emergency Room yesterday with renal colic, was seen and admi tted by Dr. Óscar Esquivel and went to the OR today for stents to be placed in the ureters by urologist , Dr. Downey. I met Dr. Downey in the parking lot. He tolerated the procedure uneventfully and the eyal ent was ready for discharge. Dr. Downey had already spoken to the primary care physician, Dr. Óscar olvera, and the discharge order was called in, so the patient was heading home. Jhon Esquivel MD cc: [phone] TT: 09/08/2016 07:38:16 Confirmation # [id number] Dictation # [id number]
--- NOTE | 2016-09-08 15:36 | RAD ---
PROCEDURE: Fluoroscopy up to 1 hour HISTORY: CYSTO/ STENT PLACEMENT COMPARISON: TECHNIQUE: Fluoroscopy was provided in the operating room. 1 minutes and 12 seconds of fluoroscopy time was used. Six images were submitted FINDINGS: There is placement of a right ureteral stent. IMPRESSION: As above
--- NOTE | 2016-12-10 20:51 | HP ---
HISTORY OF PRESENT ILLNESS: The patient is a 75-year-old male, who is known to have kidney stones in the past. He came to the emergency room complaining of right-sided flank and abdominal pain. He states that these symptoms were similar to passage of kidney stones in the past. He denies any fever or chills, nausea or vomiting. He is noted to have essentially in good health except for his history of kidney stones in the past. SOCIAL HISTORY: He never smoked. He is a nonalcoholic drinker. MEDICATIONS: His only medication was only Percocet 5/325, which he rarely takes. REVIEW OF SYSTEMS: Completely normal, except for the chief complaint as mentioned above. PHYSICAL EXAMINATION: VITAL SIGNS: His blood pressure is 150/77, heart rate is 70 beats per minute and he is afebrile. GENERAL: He is awake, alert and oriented. HEAD, EYES, EARS, NOSE AND THROAT: Unremarkable. NECK: Supple with no lymphadenopathy and no goiter. LUNGS: Clear to auscultation and percussion. HEART: Sounds are regular with no murmurs, gallops or rubs. ABDOMEN: Showed a mild right-sided abdominal tenderness to palpation. His bowel sounds are normal. There is right-sided CVA tenderness noted. EXTREMITIES: Free of cyanosis, clubbing or edema. NEUROLOGIC: The patient is awake, alert, and oriented with no focal neurological signs. The CAT scan of the abdomen and pelvis showed bilateral renal calculi with a mild right-sided hydronephrosis secondary to calculi in a distal right ureter at the level of the major pelvis. There was also small calculi in the distal left ureter. LABORATORY DATA: White blood cell count was mildly elevated at 11.1, hemoglobin and hematocrit were normal, serum electrolytes were normal. Blood urea nitrogen was mildly elevated at 28 with creatinine of 1.1. The urinalysis showed trace protein with trace urinary ketones and a large amount of blood. It was negative for urinary nitrates. Negative for white blood cells. IMPRESSION: The patient is admitted with right renal colic, right ureteral calculi, consultation from Dr. Downey, the urologist is requested. Pablo Esquivel MD [facility] # [id number]
== END 2016-09-07 13:36 | disposition home or self-care (01) ==
LOC: ED 13:37 → ERH 16:15 → 5RSO 20:46
PROVIDERS: ADMIT Internal Medicine; ATTEND Internal Medicine
DX: N35.9 Urethral stricture, unspecified (principal); N13.2 Hydronephrosis with renal and ureteral calculous obstruction; N40.0 Benign prostatic hyperplasia without lower urinary tract symptoms; M54.12 Radiculopathy, cervical region; Z88.0 Allergy status to penicillin
CPT/HCPCS: 52282; 71010; 74176; 76000; 80053; 81001; 82150; 82948; 83690; 85025; 87086; 93005; 96374; 96375; 96376; 99285; C1758; C1769; C2625; G0378; J1885; J2250; J2270; J2704; J3010; J7042; J7120; Q9966

== ENCOUNTER 2016-10-23 09:51 | Emergency (ER) | payer MEDICARE ==
[2016-10-23 09:51] VITALS: BMI 26.5
[2016-10-23 09:58] VITALS: BP 117/78; PULSE 98; RESP 19; TEMP 98.2; O2SAT 100
--- NOTE | 2016-10-23 10:12 | ED PDOC ---
Arrival/HPI - General Chief Complaint: Abnormal Skin Integrity Time Seen by Provider: 10/23/16 10:09 - History of Present Illness Narrative History of Present Illness (Text): 10/23/16 10:00 Dash Teran is a 75 year old male, whose past medical history includes multiple kidney stones, who presents to the emergency department complaining of an erythematous, itchy rash localized on his torso, thighs, and groin region for 2 days. Patient states that he has not used any new deodorant, soaps, clothes, or food. Patient states that he has an appointment with a med surg nurse on Tuesday. Patient states he's been taking abx for the past few weeks for URI. Patient denies any fever, chills, difficulty breathing, wheezing or any other complaint at this time. PMD: Dr. Eloise Esquivel Time/Duration: < week (2 days) Symptom Onset: Gradual Symptom Course: Unchanged Severity Level: Mild Activities at Onset: Light Context: Home Past Medical History - Provider Review Nursing Documentation Reviewed: Yes - Infectious Disease Hx of Infectious Diseases: None - Past Medical History Past Medical History: No Previous - Cardiac Hx Cardiac Disorders: No - Pulmonary Hx Respiratory Disorders: No - Neurological Hx Neurological Disorder: No - HEENT Hx HEENT Disorder: No - Renal Hx Renal Disorder: Yes Hx Kidney Stones: Yes - Endocrine/Metabolic Hx Endocrine Disorders: No - Hematological/Oncological Hx Blood Transfusions: No Hx Blood Transfusion Reaction: No - Integumentary Hx Dermatological Disorder: No - Musculoskeletal/Rheumatological Hx Musculoskeletal Disorders: Yes Hx Back Pain: Yes Hx Falls: No - Gastrointestinal Hx Gastrointestinal Disorders: No Other/Comment: Hernia - Genitourinary/Gynecological Hx Genitourinary Disorders: Yes Other/Comment: Kidney stones - Psychiatric Hx Psychophysiologic Disorder: No Hx Depression: No Hx Emotional Abuse: No Hx Physical Abuse: No Hx Substance Use: No - Past Surgical History Past Surgical History: Non-Contributing - Surgical History Other/Comment: hernia and kidney stone - Anesthesia Hx Anesthesia: Yes Hx Anesthesia Reactions: Yes Hx Malignant Hyperthermia: No - Suicidal Assessment Feels Threatened In Home Enviroment: No Family/Social History - Physician Review Nursing Documentation Reviewed: Yes Family/Social History: No Known Family HX Smoking Status: Never Smoked Hx Alcohol Use: Yes (SOCIALLY) Frequency of alcohol use: Socially Hx Substance Use: No Hx Substance Use Treatment: No Allergies/Home Meds Allergies/Adverse Reactions: Allergies Penicillins Allergy (Verified 10/23/16 09:53) ANAPHYLAXIS Physical Exam - Physical Exam Narrative Physical Exam (Text): - Review of Systems Constitutional: Normal. absent: Fatigue, Weight Change, Fevers Eyes: Normal ENT: Normal Respiratory: Normal absent: SOB, Cough, Sputum Cardiovascular: Normal absent: Chest pain, Palpitations, Syncope Gastrointestinal: Normal absent: Abdominal pain, Diarrhea, Nausea, Vomiting Genitourinary: Normal. absent: Dysuria, Frequency, Hematuria Musculoskeletal: Normal. absent: Arthralgias, Back Pain, Neck Pain Skin: Rash to torso, thighs, and groin region. Neurological: Normal absent: Focal Weakness Endocrine: Normal Hemo/Lymphatic: Normal Psychiatric: Normal - Physical exam Patient appears age appropriate, speaking full sentences without difficulty - Systems Exam Head: Present: Atraumatic, Normocephalic Pupils: Present: PERRL Extraocular Muscles: Present: EOMI Conjunctiva: Present: Normal Mouth: Present: Moist Mucous Membranes Neck: Present: Normal Range of Motion. No: MIDLINE TENDERNESS, Paraspinal Tenderness Respiratory/Chest: Present: Clear to Auscultation, Good Air Exchange. No: Respiratory Distress, Accessory Muscle Use, Tachypneic Cardiovascular: Present: Regular Rate and Rhythm, Normal S1, S2, Peripheral Pulses Present. No: Murmurs Abdomen: Present: Normal Bowel Sounds, No: Tenderness, Peritoneal Signs, Rebound, Guarding, Distention Back: Present: Normal Inspection. No: Midline Tenderness, Paraspinal Tenderness Upper Extremity: Present: Normal Inspection. No: Cyanosis, Edema Lower Extremity: Present: Normal Inspection. No: Edema Neurological: Present: GCS=15, Speech Normal, cranial nerves II through XII fully intact with no cerebellar abnormality, neuro-sensory fully intact. No focal neurological deficits. Skin: Diffuse, raised erythematous, blanching rash localized on torso, thighs, and groin region. Sparing palms and soles. No symptoms or signs of cellulitis. Lymphatic: Present: OX3, NI, NC Psychiatric: Present: Alert, Oriented x 3, Normal Insight, Normal Concentration Vital Signs Reviewed: Yes Vital Signs Temp Pulse Resp BP Pulse Ox 10/23/16 09:52 98.2 F 98 H 19 117/78 100 Temperature: Afebrile Blood Pressure: Normal Pulse: Regular Respiratory Rate: Normal Appearance: Positive for: Well-Appearing, Non-Toxic, Comfortable Pain Distress: None Mental Status: Positive for: Alert and Oriented X 3 Medical Decision Making ED Course and Treatment: 10/23/16 10:00 Impression: 75 year old male complaining of a rash to his legs, back and abdominal area for two days. Rash is blanching, erythematous, pruritic Based on history and physical exam, there is no suspicion for erythema multiforme and SJS. Patient was told to discontinue antibiotics for URI because he is no longer symptomatic. Differential Diagnosis include but are not limited to: Rash, Dermatitis Plan: -- Discharge Prior Visits: Notes and results from previous visits were reviewed. Patient last seen in ED on 09/06/16 for right sided flank and abdominal pain for a few hours. Patient was admitted to hospitalist care for further evaluation. Progress Notes: 10/23/2016 10:05 Pt states he understands to return to the ER right away for new or worsening symptoms or for inability to f/u with PMD or specialist as instructed. Patient states that he fully agrees with and understands discharge instructions. States that he agrees with the plan and disposition. Verbalized and repeated discharge instructions and plan. I have given the patient opportunity to ask any additional questions. Disposition/Present on Arrival - Present on Arrival Any Indicators Present on Arrival: No History of DVT/PE: No History of Uncontrolled Diabetes: No Urinary Catheter: No History of Decub. Ulcer: No History Surgical Site Infection Following: None - Disposition Have Diagnosis and Disposition been Completed?: Yes Diagnosis: Rash Disposition: HOME/ ROUTINE Disposition Time: 10:09 Patient Plan: Discharge Condition: GOOD Discharge Instructions (ExitCare): Acute Rash (ED), Dermatitis (ED) Additional Instructions: PLEASE RETURN TO THE EMERGENCY DEPARTMENT FOR NEW OR WORSENING SYMPTOMS. RETURN RIGHT AWAY IF YOU CANNOT FOLLOW UP WITH YOUR PRIMARY CARE DOCTOR, CLINIC, OR SPECIALIST IN 1-2 DAYS. Prescriptions: DiphenhydrAMINE [Benadryl] 50 mg PO BID PRN #14 cap PRN Reason: Itching / Pruritus DiphenhydrAMINE [Benadryl] 50 mg PO BID PRN #14 cap PRN Reason: Itching / Pruritus Famotidine [Pepcid] 20 mg PO BID #14 tab Methylprednisolone [Medrol Dose Pack (21 tabs)] 4 mg PO DAILY #21 mg Referrals: PCP,NO [Non-Staff] - Follow up with primary Pablo Esquivel MD [Primary Care Provider] - Follow up with primary Igor Murry MD [Staff Provider] - Follow up with primary
--- NOTE | 2016-10-23 10:14 | ED PDOC ---
Arrival/HPI - General Chief Complaint: Abnormal Skin Integrity Time Seen by Provider: 10/23/16 10:09 Historian: Patient Past Medical History - Infectious Disease Hx of Infectious Diseases: None - Past Medical History Past Medical History: No Previous - Cardiac Hx Cardiac Disorders: No - Pulmonary Hx Respiratory Disorders: No - Neurological Hx Neurological Disorder: No - HEENT Hx HEENT Disorder: No - Renal Hx Renal Disorder: Yes Hx Kidney Stones: Yes - Endocrine/Metabolic Hx Endocrine Disorders: No - Hematological/Oncological Hx Blood Transfusions: No Hx Blood Transfusion Reaction: No - Integumentary Hx Dermatological Disorder: No - Musculoskeletal/Rheumatological Hx Musculoskeletal Disorders: Yes Hx Back Pain: Yes Hx Falls: No - Gastrointestinal Hx Gastrointestinal Disorders: No Other/Comment: Hernia - Genitourinary/Gynecological Hx Genitourinary Disorders: Yes Other/Comment: Kidney stones - Psychiatric Hx Psychophysiologic Disorder: No Hx Depression: No Hx Emotional Abuse: No Hx Physical Abuse: No Hx Substance Use: No - Past Surgical History Past Surgical History: Non-Contributing - Surgical History Other/Comment: hernia and kidney stone - Anesthesia Hx Anesthesia: Yes Hx Anesthesia Reactions: Yes Hx Malignant Hyperthermia: No - Suicidal Assessment Feels Threatened In Home Enviroment: No Family/Social History Smoking Status: Never Smoked Hx Alcohol Use: Yes (SOCIALLY) Frequency of alcohol use: Socially Hx Substance Use: No Hx Substance Use Treatment: No Allergies/Home Meds Allergies/Adverse Reactions: Allergies Penicillins Allergy (Verified 10/23/16 09:53) ANAPHYLAXIS Physical Exam Vital Signs Temp Pulse Resp BP Pulse Ox 10/23/16 09:52 98.2 F 98 H 19 117/78 100 Disposition/Present on Arrival - Present on Arrival History of DVT/PE: No History of Uncontrolled Diabetes: No Urinary Catheter: No History of Decub. Ulcer: No History Surgical Site Infection Following: None - Disposition Referrals: PCP,NO [Primary Care Provider] - Follow up with primary
== END 2016-10-23 10:39 | disposition home or self-care (01) ==
LOC: ED 09:51
DX: R21 Rash and other nonspecific skin eruption (principal)

== ENCOUNTER 2017-03-22 18:58 | Observation (INO) | payer MEDICARE, OTHER ==
[2017-03-22 18:59] VITALS: BMI 26.5
[2017-03-22] MEDS ORDERED: Morphine 4 mg/ml ISec IVP STA (19:29)
[2017-03-22] MEDS ORDERED: Sodium Chloride 0.9% 1,000 ML IV STA ×2 (19:29→22:06)
[2017-03-22 19:57] LABS: HEMATOCRIT 44.6 % (42.0-52.0); MEAN CELL VOLUME 85.9 fl (80.0-105.0); MEAN CORPUSCULAR HEMOGLOBIN 28.9 pg (25.0-35.0); MEAN CORPUSCULAR HGB CONC 33.6 g/dl (31.0-37.0); MEAN PLATELET VOLUME 9.8 fl (7.0-11.0); RED CELL DISTRIBUTION WIDTH 14.6 % (11.5-14.5); WHITE BLOOD COUNT 8.4 10^3/ul (4.5-11.0)
--- NOTE | 2017-03-22 20:01 | ED PDOC ---
Arrival/HPI - General Chief Complaint: Abdominal Pain Time Seen by Provider: 03/22/17 19:19 Historian: Patient - History of Present Illness Narrative History of Present Illness (Text): 03/22/17 19:54 A 76 year old male, whose past medical history includes kidney stones and diabetes, presents to the emergency department complaining of left flank pain radiating to left abdomen for the past week. Patient reports symptoms have been worsening for couple days. He mentions symptoms are similar to those when he had kidney stones. Patient had stent placed in at that time. Patient notes having some urinary hesitancy , but denies any fever, chills, vomiting, diarrhea , dysuria, or any other complaints. PMD: Dr. Simental Time/Duration: 1 week Symptom Onset: Gradual Symptom Course: Unchanged Past Medical History - Provider Review Nursing Documentation Reviewed: Yes - Infectious Disease Hx of Infectious Diseases: None - Past Medical History Past Medical History: No Previous - Cardiac Hx Cardiac Disorders: No - Pulmonary Hx Respiratory Disorders: No - Neurological Hx Neurological Disorder: No - HEENT Hx HEENT Disorder: No - Renal Hx Renal Disorder: Yes Hx Kidney Stones: Yes - Endocrine/Metabolic Hx Endocrine Disorders: No - Hematological/Oncological Hx Blood Transfusions: No Hx Blood Transfusion Reaction: No - Integumentary Hx Dermatological Disorder: No - Musculoskeletal/Rheumatological Hx Musculoskeletal Disorders: Yes Hx Back Pain: Yes Hx Falls: No - Gastrointestinal Hx Gastrointestinal Disorders: No Other/Comment: Hernia - Genitourinary/Gynecological Hx Genitourinary Disorders: Yes Other/Comment: Kidney stones - Psychiatric Hx Psychophysiologic Disorder: No Hx Depression: No Hx Emotional Abuse: No Hx Physical Abuse: No Hx Substance Use: No - Past Surgical History Past Surgical History: Non-Contributing - Surgical History Other/Comment: hernia and kidney stone - Anesthesia Hx Anesthesia: Yes Hx Anesthesia Reactions: Yes Hx Malignant Hyperthermia: No - Suicidal Assessment Feels Threatened In Home Enviroment: No Family/Social History - Physician Review Nursing Documentation Reviewed: Yes Family/Social History: No Known Family HX Smoking Status: Never Smoked Hx Alcohol Use: Yes (SOCIALLY) Frequency of alcohol use: Socially Hx Substance Use: No Hx Substance Use Treatment: No Allergies/Home Meds Allergies/Adverse Reactions: Allergies Penicillins Allergy (Verified 10/23/16 09:53) ANAPHYLAXIS Review of Systems - Physician Review All systems were reviewed & negative as marked: Yes - Review of Systems Constitutional: absent: Fevers, Night Sweats Gastrointestinal: Abdominal Pain (left side radiating form left flank pain). absent: Diarrhea, Vomiting Genitourinary Male: absent: Dysuria Musculoskeletal: Other (left flank pain radiating to left adomen) Physical Exam Vital Signs Reviewed: Yes Vital Signs Temp Pulse Resp BP Pulse Ox 03/22/17 23:51 97.8 F 72 17 159/75 H 98 03/22/17 23:50 159/79 H 98 03/22/17 19:05 97.5 F L 68 16 156/77 H 98 Temperature: Afebrile Blood Pressure: Normal Pulse: Regular Respiratory Rate: Normal Appearance: Positive for: Well-Appearing Pain Distress: None Mental Status: Positive for: Alert and Oriented X 3 - Systems Exam Head: Present: Atraumatic, Normocephalic Pupils: Present: PERRL Extroacular Muscles: Present: EOMI Conjunctiva: Present: Normal Mouth: Present: Moist Mucous Membranes Neck: Present: Normal Range of Motion Respiratory/Chest: Present: Clear to Auscultation, Good Air Exchange. No: Respiratory Distress, Accessory Muscle Use Cardiovascular: Present: Regular Rate and Rhythm, Normal S1, S2. No: Murmurs Abdomen: Present: Normal Bowel Sounds, Other (globus). No: Tenderness Back: Present: Normal Inspection Upper Extremity: Present: Normal Inspection. No: Cyanosis, Edema Lower Extremity: Present: Normal Inspection. No: Edema Neurological: Present: GCS=15, CN II-XII Intact, Speech Normal Skin: Present: Warm, Dry, Normal Color. No: Rashes Psychiatric: Present: Alert, Oriented x 3, Normal Insight, Normal Concentration Medical Decision Making ED Course and Treatment: 03/22/17 20:00 Impression: 76 year old male with left flank pain radiating to left abdomen. Physical exam shows abdominal globus, good bowel sounds. Differential Diagnosis included but are not limited to: Kidney Stones vs. Musculoskeletal pain vs. Diverticulitis Plan: -- Abd/Pelvis CT -- Labs -- Urinalysis -- Morphine -- Zofran -- IV Fluids -- Reassess and disposition Prior Visits: Notes and results from previous visits were reviewed. Patient was last seen in the emergency department on 10/23/2016 for erythematous, itchy rash on his torso , thighs, and groin region. Patient was d/c home. Progress Notes: CT Abdomen and Pelvis Without Intravenous Contrast FINDINGS: Lower thorax: Bibasilar atelectasis. ABDOMEN: Liver: No acute findings Gallbladder and bile ducts: No acute finding. No calcified stones. No intra- extrahepatic biliary ductal dilation. Pancreas: Limited evaluation secondary to the lack of intravenous contrast. Spleen: No acute findings. Adrenals: No acute findings. Kidneys and ureters: Left-sided hydroureteronephrosis extending to the distal left ureter where a 5 mm stone is identified. The right kidney, renal pelvis and ureter are unremarkable. PELVIS: Bladder: No acute findings. Reproductive: No acute findings. Appendix: The appendix is not definitively visualized, however no pericecal inflammatory change is identified to suggest the presence of acute appendicitis. ABDOMEN and PELVIS: Stomach and bowel: No acute findings. Peritoneum: No acute findings. Lymph nodes: Limited evaluation without intravenous contrast. Vasculature: No aortic aneurysm. Calcified atherosclerotic disease. Bones: No acute fracture. IMPRESSION: Left-sided hydroureteronephrosis secondary to a 5 mm stone within the distal left ureter, at the level of the left UVJ. Dictated and Authenticated by: Stacie Webber MD 03/22/2017 9:30 PM Eastern Time ([place] & [place]) US Retroperitoneal Limited, Renal FINDINGS: Right kidney: Unremarkable in size measuring 10.3 x 5.8 x 5.4 cm. Nonobstructing stone within the lower pole of the right kidney measuring 4 mm in greatest dimension. No solid mass. No hydronephrosis. Left kidney: Enlarged, measuring 12.1 x 6.0 x 6.4 cm . Hydroureteronephrosis is identified. Multiple nonobstructing stones are also noted, the largest within the midpole measuring 7 mm in greatest dimension. No solid mass. IMPRESSION: Left-sided hydroureteronephrosis. Multiple nonobstructing stones within the bilateral kidneys, as detailed above. Dictated and Authenticated by: Stacie Webber MD 03/22/2017 9:36 PM Eastern Time ([place] & [place]) 03/22/17 22:[address] Steven Esquivel, who accepts patient to his service. Dr. Downey, urologist, on consult. - Lab Interpretations Lab Results: 03/22/17 19:45 03/22/17 19:45 Lab Results 03/22/17 19:45: WBC 8.4 D, RBC 5.19, Hgb 15.0, Hct 44.6, MCV 85.9, MCH 28.9, MCHC 33.6, RDW 14.6 H, Plt Count 159, MPV 9.8 03/22/17 19:45: Sodium 141, Potassium 4.5, Chloride 105, Carbon Dioxide 28, Anion Gap 13, BUN 33 H, Creatinine 1.7 H, Est GFR ( Amer) 48, Est GFR ( Non-Af Amer) 39, Random Glucose 99, Calcium 9.9, Total Bilirubin 0.8, AST 25, ALT 48, Alkaline Phosphatase 59, Total Protein 7.0, Albumin 4.2, Globulin 2.9, Albumin/Globulin Ratio 1.5, Lipase 119 - RAD Interpretation Radiology Orders: 03/22/17 19:29 ABD & PELVIS W/O PO OR IV CONT [CT] Stat 03/22/17 20:35 RENAL [US] Stat - Medication Orders Current Medication Orders: Sodium Chloride (Sodium Chloride 0.9%) 1,000 mls @ 100 mls/hr IV .Q10H STA Stop: 03/23/17 08:05 Last Admin: 03/22/17 23:31 Dose: 100 mls/hr eMAR Start Stop Document 03/22/17 23:31 SS (Rec: 03/22/17 23:31 SS [id number]) Intravenous Solution Start Date 03/22/17 Start Time 23:31 Oxycodone/Acetaminophen (Percocet 5/325 Mg Tab) 1 tab PO Q4H PRN PRN Reason: Pain, moderate (4-7) Stop: 03/23/17 10:00 Discontinued Medications Diphenhydramine HCl (Benadryl) 25 mg PO ONCE ONE Stop: 03/23/17 02:05 Hydromorphone HCl (Dilaudid) 1 mg IVP STAT STA Stop: 03/22/17 20:04 Last Admin: 03/22/17 20:37 Dose: 1 mg MAR Pain Assessment Document 03/22/17 20:37 SS (Rec: 03/22/17 20:37 SS [id number]) Pain Reassessment Is this a pain reassessment? Yes Sleep Is patient sleeping during reassessment? No Presence of Pain Presence of Pain Yes Location Left, Right or Bilateral Left Upper or Lower Lower Pain Location Body Site Abdomen Description Description Constant Intensity of Pain at present 9 Pain Behavior Irritability Rubbing Site IVP Administration Document 03/22/17 20:37 SS (Rec: 03/22/17 20:37 SS [id number]) Charges for Administration # of IVP Administrations 1 Hydromorphone HCl (Dilaudid) 1 mg IVP STAT STA Stop: 03/22/17 23:45 Last Admin: 03/23/17 00:04 Dose: 1 mg MAR Pain Assessment Document 03/23/17 00:04 BR (Rec: 03/23/17 00:05 BR [id number]) Pain Reassessment Is this a pain reassessment? No Sleep Is patient sleeping during reassessment? No Presence of Pain Presence of Pain Yes IVP Administration Document 03/23/17 00:04 BR (Rec: 03/23/17 00:05 BR [facility] Charges for Administration # of IVP Administrations 1 Sodium Chloride (Sodium Chloride 0.9%) 1,000 mls @ 999 mls/hr IV .Q1H1M STA Stop: 03/22/17 20:29 Last Admin: 03/22/17 21:08 Dose: 999 mls/hr eMAR Start Stop Document 03/22/17 21:08 SS (Rec: 03/22/17 21:08 SS [id number]) Intravenous Solution Start Date 03/22/17 Start Time 21:08 End Date 03/22/17 End time 22:08 Total Infusion Time 60 Morphine Sulfate (Morphine) 4 mg IVP STAT STA Stop: 03/22/17 19:30 Last Admin: 03/22/17 19:49 Dose: 4 mg MAR Pain Assessment Document 03/22/17 19:49 SS (Rec: 03/22/17 19:50 SS [id number]) Pain Reassessment Is this a pain reassessment? No Sleep Is patient sleeping during reassessment? No Presence of Pain Presence of Pain Yes Pain Scale Used Pain Scale Used Numeric Location Left, Right or Bilateral Left Upper or Lower Lower Pain Location Body Site Abdomen Description Description Constant Intensity of Pain at present 10 IVP Administration Document 03/22/17 19:49 SS (Rec: 03/22/17 19:50 SS [id number]) Charges for Administration # of IVP Administrations 1 Ondansetron HCl (Zofran Inj) 4 mg IVP ONCE ONE Stop: 03/22/17 19:30 Last Admin: 03/22/17 19:50 Dose: 4 mg IVP Administration Document 03/22/17 19:50 SS (Rec: 03/22/17 19:50 SS [id number]) Charges for Administration # of IVP Administrations 1 - Scribe Statement The provider has reviewed the documentation as recorded by the Rodrigue Laughlin Provider Scribe Attestation: All medical record entries made by the [place] were at my direction and personally dictated by me. I have reviewed the chart and agree that the record accurately reflects my personal performance of the history, physical exam, medical decision making, and the department course for this patient. I have also personally directed, reviewed, and agree with the discharge instructions and disposition. Disposition/Present on Arrival - Present on Arrival Any Indicators Present on Arrival: No History of DVT/PE: No History of Uncontrolled Diabetes: No Urinary Catheter: No History of Decub. Ulcer: No History Surgical Site Infection Following: None - Disposition Have Diagnosis and Disposition been Completed?: Yes Diagnosis: Intractable pain, Renal colic Disposition: HOSPITALIZED Disposition Time: 21:55 Patient Problems: Current Active Problems Problem Status Onset Intractable pain Acute Renal colic Acute Condition: STABLE
[2017-03-22] MEDS ORDERED: HYDROmorphone 1 mg/ml ISec IVP STA ×2 (20:03→23:44)
[2017-03-22 20:42] LABS: ALB/GLOB RATIO 1.5 (1.1-1.8); BILIRUBIN,TOTAL 0.8 mg/dL (0.2-1.3); CALCIUM 9.9 mg/dL (8.4-10.5); POTASSIUM 4.5 mmol/L (3.6-5.0)
--- NOTE | 2017-03-22 21:30 | CT ---
EXAM: CT Abdomen and Pelvis Without Intravenous Contrast CLINICAL HISTORY: 76 years old, male; Pain; Abdominal pain; Acute; Additional info: Left flank pain TECHNIQUE: Axial computed tomography images of the abdomen and pelvis without intravenous contrast. All CT scans at this facility use one or more dose reduction techniques, viz.: automated exposure control; ma/kV adjustment per patient size (including targeted exams where dose is matched to indication; i.e. head); or iterative reconstruction technique. MIP reconstructed images were created and reviewed. Coronal and sagittal reformatted images were created and reviewed. COMPARISON: CT - ABD PELVIS W/O PO OR IV CONT 2016-09-06 14:40 FINDINGS: Lower thorax: Bibasilar atelectasis. ABDOMEN: Liver: No acute findings Gallbladder and bile ducts: No acute finding. No calcified stones. No intra-extrahepatic biliary ductal dilation. Pancreas: Limited evaluation secondary to the lack of intravenous contrast. Spleen: No acute findings. Adrenals: No acute findings. Kidneys and ureters: Left-sided hydroureteronephrosis extending to the distal left ureter where a 5 mm stone is identified. The right kidney, renal pelvis and ureter are unremarkable. PELVIS: Bladder: No acute findings. Reproductive: No acute findings. Appendix: The appendix is not definitively visualized, however no pericecal inflammatory change is identified to suggest the presence of acute appendicitis. ABDOMEN and PELVIS: Stomach and bowel: No acute findings. Peritoneum: No acute findings. Lymph nodes: Limited evaluation without intravenous contrast. Vasculature: No aortic aneurysm. Calcified atherosclerotic disease. Bones: No acute fracture. IMPRESSION: Left-sided hydroureteronephrosis secondary to a 5 mm stone within the distal left ureter, at the level of the left UVJ.
--- NOTE | 2017-03-22 21:36 | US ---
EXAM: US Retroperitoneal Limited, Renal CLINICAL HISTORY: 76 years old, male; Abnormal findings; Abnormal lab test; Abnormal kidney function lab tests; Additional info: Left flank pain TECHNIQUE: Real-time ultrasound of the retroperitoneum (limited) with image documentation. COMPARISON: None. FINDINGS: Right kidney: Unremarkable in size measuring 10.3 x 5.8 x 5.4 cm. Nonobstructing stone within the lower pole of the right kidney measuring 4 mm in greatest dimension. No solid mass. No hydronephrosis. Left kidney: Enlarged, measuring 12.1 x 6.0 x 6.4 cm . Hydroureteronephrosis is identified. Multiple nonobstructing stones are also noted, the largest within the midpole measuring 7 mm in greatest dimension. No solid mass. IMPRESSION: Left-sided hydroureteronephrosis. Multiple nonobstructing stones within the bilateral kidneys, as detailed above.
[2017-03-22 23:27] LABS: URINE BILIRUBIN NEGATIVE (NEGATIVE); URINE BLOOD TRACE-INTACT (NEGATIVE); URINE GLUCOSE (UA) NEGATIVE (NEGATIVE); URINE KETONE 15 mg/dL (NEGATIVE); URINE LEUKOCYTE ESTERASE NEGATIVE Leu/uL (NEGATIVE); URINE PROTEIN NEGATIVE mg/dL (<30 mg/dL); URINE UROBILINOGEN 0.2 E.U./dL (<1 E.U./dL)
[2017-03-22 23:30] LABS: URINE APPEARANCE CLEAR (CLEAR); URINE COLOR YELLOW (YELLOW)
[2017-03-22 23:43] LABS: URINE EPITHELIAL CELLS 0 - 2 /hpf (0-5); URINE RBC 0 - 2 /hpf (0-2); URINE WBC 0 - 2 /hpf (0-6)
[2017-03-23] MEDS: Oxycodone/Acetaminophen 5/325 mg Tab PO PRN ×2 (03:50→08:26)
[2017-03-23] MEDS ORDERED: HYDROmorphone 1 mg/ml ISec IVP STA ×2 (04:34→09:38)
--- NOTE | 2017-03-23 06:13 | CP.PCM.PN ---
Subjective - Date & Time of Evaluation Date of Evaluation: 03/23/17 Time of Evaluation: 06:09 (Seen earlier.) - Subjective Subjective: Patient was ordered to have benadryl for insomnia earlier. Later on , he complained of left flank pain, LLQ pain. At that time , I saw him at bedside. He complained of left flank, LLQ pain, sharp pain, states that he has 5 mm kidney stone, has history of renal calculi. Has no other compalaints. This 76 year old white male was admitted with right flank pain.(Patient complained to me he has left sided pain.), renal insufficiency. Has PMH of renal calculi,allergy to PCN. Objective - Vital Signs/Intake and Output Vital Signs (last 24 hours): Temp Pulse Resp BP Pulse Ox 98.7 F 65 18 164/83 H 98 03/23/17 02:09 03/23/17 02:09 03/23/17 02:09 03/23/17 02:09 03/22/17 23:51 Intake and Output: 03/22/17 03/23/17 18:59 06:59 Intake Total 360 Output Total 600 Balance -240 - Medications Medications: Current Medications Sodium Chloride (Sodium Chloride 0.9%) 1,000 mls @ 100 mls/hr IV .Q10H STA Stop: 03/23/17 08:05 Last Admin: 03/22/17 23:31 Dose: 100 mls/hr Oxycodone/Acetaminophen (Percocet 5/325 Mg Tab) 1 tab PO Q4H PRN PRN Reason: Pain, moderate (4-7) Stop: 03/23/17 10:00 Last Admin: 03/23/17 03:50 Dose: 1 tab Last Vital Signs Temp 98.7 F 03/23/17 02:09 Pulse 65 03/23/17 02:09 Resp 18 03/23/17 02:09 BP 164/83 H 03/23/17 02:09 Pulse Ox 98 03/22/17 23:51 Most Recent Lab Values WBC 8.4 10^3/ul (4.5-11.0) D 03/22/17 19:45 RBC 5.19 10^6/uL (3.5-6.1) 03/22/17 19:45 Hgb 15.0 g/dL (14.0-18.0) 03/22/17 19:45 Hct 44.6 % (42.0-52.0) 03/22/17 19:45 MCV 85.9 fl (80.0-105.0) 03/22/17 19:45 MCH 28.9 pg (25.0-35.0) 03/22/17 19:45 MCHC 33.6 g/dl (31.0-37.0) 03/22/17 19:45 RDW 14.6 % (11.5-14.5) H 03/22/17 19:45 Plt Count 159 10^3/uL (120.0-450.0) 03/22/17 19:45 MPV 9.8 fl (7.0-11.0) 03/22/17 19:45 Sodium 141 mmol/L (132-148) 03/22/17 19:45 Potassium 4.5 mmol/L (3.6-5.0) 03/22/17 19:45 Chloride 105 mmol/L (98-107) 03/22/17 19:45 Carbon Dioxide 28 mmol/L (21-33) 03/22/17 19:45 Anion Gap 13 (10-20) 03/22/17 19:45 BUN 33 mg/dL (7-21) H 03/22/17 19:45 Creatinine 1.7 mg/dl (0.8-1.5) H 03/22/17 19:45 Est GFR ( Amer) 48 03/22/17 19:45 Est GFR (Non-Af Amer) 39 03/22/17 19:45 Random Glucose 99 mg/dL (70-110) 03/22/17 19:45 Calcium 9.9 mg/dL (8.4-10.5) 03/22/17 19:45 Total Bilirubin 0.8 mg/dL (0.2-1.3) 03/22/17 19:45 AST 25 U/L (17-59) 03/22/17 19:45 ALT 48 U/L (7-56) 03/22/17 19:45 Alkaline Phosphatase 59 U/L (38-126) 03/22/17 19:45 Total Protein 7.0 g/dL (5.8-8.3) 03/22/17 19:45 Albumin 4.2 g/dL (3.0-4.8) 03/22/17 19:45 Globulin 2.9 gm/dL 03/22/17 19:45 Albumin/Globulin Ratio 1.5 (1.1-1.8) 03/22/17 19:45 Lipase 119 U/L (23-300) 03/22/17 19:45 Urine Color Yellow (YELLOW) 03/22/17 23:20 Urine Appearance Clear (CLEAR) 03/22/17 23:20 Urine pH 6.0 (4.7-8.0) 03/22/17 23:20 Ur Specific [place] 1.020 (1.005-1.035) 03/22/17 23:20 Urine Protein Negative mg/dL (<30 mg/dL) 03/22/17 23:20 Urine Glucose (UA) Negative mg/dL (NEGATIVE) 03/22/17 23:20 Urine Ketones 15 mg/dL (NEGATIVE) H 03/22/17 23:20 Urine Blood Trace-intact (NEGATIVE) H 03/22/17 23:20 Urine Nitrate Negative (NEGATIVE) 03/22/17 23:20 Urine Bilirubin Negative (NEGATIVE) 03/22/17 23:20 Urine Urobilinogen 0.2 E.U./dL (<1 E.U./dL) 03/22/17 23:20 Ur Leukocyte Esterase Negative [place]/uL (NEGATIVE) 03/22/17 23:20 Urine RBC 0 - 2 /hpf (0-2) 03/22/17 23:20 Urine WBC 0 - 2 /hpf (0-6) 03/22/17 23:20 Ur Epithelial Cells 0 - 2 /hpf (0-5) 03/22/17 23:20 - Constitutional Appears: Well, No Acute Distress - Head Exam Head Exam: ATRAUMATIC, NORMAL INSPECTION, NORMOCEPHALIC - Eye Exam Eye Exam: Normal appearance - ENT Exam ENT Exam: Normal External Ear Exam - Neck Exam Neck Exam: Normal Inspection - Respiratory Exam Respiratory Exam: NORMAL BREATHING PATTERN - Cardiovascular Exam Cardiovascular Exam: absent: JVD - GI/Abdominal Exam GI & Abdominal Exam: Tenderness (Mild left flank tenderness positive.). absent : Distended - Rectal Exam Rectal Exam: NORMAL INSPECTION - Exam Additional comments: Deferred. - Extremities Exam Extremities Exam: Normal Inspection - Back Exam Back Exam: NORMAL INSPECTION - Neurological Exam Neurological Exam: Alert, Awake, Oriented x3 - Psychiatric Exam Psychiatric exam: Normal Affect, Normal Mood - Skin Skin Exam: Normal Color Assessment and Plan - Assessment and Plan (Free Text) Assessment: LLQ,Left flank pain. Left renal calculus. Left hydronephrosis. History renal calculi. History of allergy to penicillin. Plan: Benadryl 25 mg PO was ordered earlier. Dilaudid 1 mg IV x 1. Continue management as per PMD.
[2017-03-23] MEDS ORDERED: HYDROmorphone 2 mg/ml ISec IVP PRN (09:51)
[2017-03-23] MEDS: Dextrose 5%/0.45% NS 1,000 ML IV SCH (10:00)
[2017-03-23] MEDS ORDERED: Etomidate 20 mg/10ml Inj IV ONE (16:37)
[2017-03-23] MEDS ORDERED: Succinylcholine 200 mg/10 ml Inj IV ONE (16:37)
[2017-03-23] MEDS ORDERED: Sodium Chloride 0.9% 1,000 ML IV SCH (17:00)
--- NOTE | 2017-03-23 17:01 | CARD ---
APPROVED REPORT EKG Measurement Heart [id number] CO 164P6 [id number] <Conclusion> Normal sinus rhythm Normal ECG
[2017-03-23] MEDS ORDERED: Gentamicin 80mg/50ml NS 80 MG/50 ML BAG IVPB ONE ×2 (17:21→18:18)
[2017-03-23] MEDS ORDERED: Iohexol 240 (50 ml) ONE (17:21)
[2017-03-23] MEDS ORDERED: Gentamicin IV 80mg/50ml NS(PREMIX) IVPB ONE (18:17)
[2017-03-23] MEDS: HYDROmorphone 0.5 mg/0.5 ml ISec IVP PRN ×2 (18:40→18:55)
[2017-03-23] MEDS ORDERED: HYDROmorphone 1 mg/ml ISec ONE (18:41)
[2017-03-24] MEDS: Dextrose 5%/0.45% NS 1,000 ML IV SCH (05:56)
--- NOTE | 2017-03-24 08:09 | OP ---
PROCEDURE DATE: 03/23/2017 PREOPERATIVE DIAGNOSES: Left ureteral calculus, left hydronephrosis and renal colic. POSTOPERATIVE DIAGNOSES: Left ureteral calculus, left hydronephrosis and renal colic. PROCEDURE: Cystoscopy and insertion of a left ureteral stent. ATTENDING SURGEON: Nick Mckeon MD ANESTHESIA: General. SPECIMENS: None. DRAINS: A 6 x 26 ureteral stent. COMPLICATIONS: None. OPERATIVE FINDINGS: After informed consent was obtained, the patient was taken to the operating room, placed on the operating table. Anesthesia was administered. The patient was placed in a dorsolithotomy position and prepped and draped in the usual sterile fashion. A 21-[place] cystoscope was placed in the patient's urethra and advanced proximally under direct vision until the bladder was entered. A full survey inspection bladder was then performed which revealed no stones, tumors or foreign bodies of the bladder. Both ureteral orifices were visualized and appeared within normal limits. There was a small amount of debris noted coming out from the left ureteral orifice. At this point, a [place] catheter was introduced through the cystoscope and guided into the left ureteral orifice. When inside the orifice, contrast was then instilled into the system during real-time fluoroscopy. The left ureter was markedly dilated. There was a filling defect in the distal ureter consistent with the stone noted on CT scan. The ureter was dilated in its entirety up until the kidney, which showed [id number] hydronephrosis. At this point, a sensor wire was obtained. It was passed through the open-ended ureteral catheter and to the left ureter and the guidewire was advanced proximally under direct fluoroscopic guidance until it was coiled in the upper collecting system. The open-ended ureteral catheter was then withdrawn and a 6 x 26 stent was obtained. The stent was passed through the cystoscope over the guidewire into the left ureter and advanced proximally under direct and fluoroscopic guidance until it was then at the appropriate position. When the stent was then placed, the guidewire was removed. A coil was seen in the kidney on fluoroscopy. A coil was seen in the bladder on cystoscopy. A large amount of debris and turbid urine was noted exiting from the stent. The patient received intravenous antibiotics prior to start of the procedure. The patient tolerated the procedure well. He was returned to supine position and taken to the recovery room awake in stable condition. Nick Mckeon MD [facility] # [id number]
[2017-03-24 08:47] VITALS: BP 179/86; PULSE 58
[2017-03-24 09:22] VITALS: RESP 16; TEMP 97.9; O2SAT 98
[2017-03-24] MEDS ORDERED: Tmp-Smz 800 mg-160 mg DS Tab PO SCH (10:00)
--- NOTE | 2017-03-24 12:11 | RAD ---
PROCEDURE: Fluoroscopy up to 1 hour HISTORY: RETROGRADE / STENT INSERTION (LEFT) COMPARISON: TECHNIQUE: Fluoroscopy was provided in the operating room. 31 seconds of fluoro time were use. Seven images were submitted FINDINGS: The study shows placement of a left ureteral stent IMPRESSION: As above
--- NOTE | 2017-03-24 13:43 | PN ---
DATE: 03/23/2017 The patient is a 76-year-old male, his only past medical history is that of renal and ureteral colic. He was last hospitalized in 12/2016 for right ureteral calculi. This time he presents to the emergency room with left-sided flank pain, left-sided CVA tenderness. He was diagnosed with a 5-mm left distal ureteral calculus. He was taken to the operating room where pigtail stent was placed by Dr. Mckeon. The patient is seen in the recovery room this evening, Dr. Mckeon was present. The patient tolerated the procedure well; however, he is complaining of nausea and vomiting. His vital signs are stable, and he will return to the medical floor and be followed postop. As per Dr. Mckeon, a follow up procedure may be considered to try to remove the calculus. Pablo Esquivel MD
--- NOTE | 2017-03-24 17:40 | HP ---
HISTORY OF PRESENT ILLNESS: The patient is a 76-year-old male who presents to the emergency room with left flank pain. The patient is known to have a history of renal and urethral calculi in the past. He has essentially no other past medical history. Workup in the emergency room shows that he did have a 5 mm left distal ureteral calculus. It was also noted he had hydroureteronephrosis. So the patient is admitted, consultation with Dr. Downey and Dr. Mckeon is requested. PAST MEDICAL HISTORY: As mentioned above the only past medical history is therefore renal calculi in the past. He is known to have a ventral hernia. SOCIAL HISTORY: He never smoked. Drinks alcohol only socially. ALLERGIES: HE IS KNOWN TO BE ALLERGIC TO PENICILLIN, WHICH APPARENTLY HAS CAUSED ANAPHYLAXIS IN THE PAST. MEDICATIONS: He apparently was taking no medications at the time of admission. REVIEW OF SYSTEMS: Otherwise negative. He was last hospitalized in 12/2013 at that time for right ureteral colic. PHYSICAL EXAMINATION: VITAL SIGNS: His blood pressure is 159/79, heart rate is 72 and he is afebrile. HEAD, EYES, EARS, NOSE AND THROAT: Unremarkable. NECK: Supple. There is no lymphadenopathy. No goiter. LUNGS: Clear to auscultation and percussion. HEART: Regular. No murmurs, gallops, or rubs are appreciated. ABDOMEN: Soft,and nontender. There is some left-sided flank pain on palpation. There is left CVA tenderness. EXTREMITIES: Free of cyanosis, clubbing or edema. NEUROLOGIC: The patient is awake, alert and oriented with no focal neurological signs. LABORATORY STUDIES: Reveal white blood cell count to be 8.4, hemoglobin and hematocrit are 15.0 and 44.6 respectively, platelet count is 159, sodium is 141, potassium is 4.5. BUN and creatinine are 33 and 1.7 respectively, platelet count is 99. So the patient is evaluated by Dr. Mckeon. He will be taken to the operating for stent placement in the left ureter. Pablo Esquivel MD
--- NOTE | 2017-03-24 23:50 | PN ---
DATE: 03/24/2017 SUBJECTIVE: The patient was seen this at noon time in room 577, bed 2. He is sitting out off bed, fully dressed, looking very much forward to going home. He underwent cystoscopy and stent placement in the left ureter because of obstructing renal stone. He is afebrile. Vital signs are stable and in good spirits. Ready to discharge to home. Physical exam is unremarkable. Prescriptions were left for Bactrim, Pyridium, and tramadol for pain. He will follow up with Dr. Downey and Dr. Mckeon in the near future and follow up with Dr. Pablo Esquivel within the next week or so. Jhon Esquivel MD
--- NOTE | 2017-03-25 08:41 | PN ---
DATE: 03/24/2017 POSTOPERATIVE PROGRESS NOTE SUBJECTIVE: The patient is seen in his room at [facility]. He was awake, alert and no acute distress. Abdomen benign. He is afebrile. The patient is tolerating diet. PLAN: He can be discharged on antibiotics and analgesics. He is to call my office later to schedule a stent removal ureteroscopy and laser lithotripsy. Nick Mckeon MD
== END 2017-03-24 16:35 | disposition home or self-care (01) ==
LOC: ED 18:58 → ERH 21:55 → 5RSO 23:58
PROVIDERS: ADMIT Internal Medicine; ATTEND Internal Medicine
DX: N13.2 Hydronephrosis with renal and ureteral calculous obstruction (principal); K43.9 Ventral hernia without obstruction or gangrene; E11.9 Type 2 diabetes mellitus without complications; Z79.84 Long term (current) use of oral hypoglycemic drugs; Z88.0 Allergy status to penicillin; G47.00 Insomnia, unspecified
CPT/HCPCS: 52332; 74176; 76770; 80053; 81001; 82948; 83690; 85027; 93005; 96361; 96374; 96375; 96376; 99284; C1758; C1769; C2625; G0378; J0330; J1170; J1580; J1885; J2270; J2405; J3010; J7040; J7042; J7120; Q9966